=== PATIENT | female | born 1985 | race Caucasian/White ===

== ENCOUNTER 2016-09-06 08:20 | Emergency (ER) | payer MEDICAID, OTHER ==
[~2016-09-06] VITALS: Ht 149.9 cm; Wt 60.5 kg
[~2016-09-06 08:20] MED LIST: OXYC-360 PO; PREN0.01 PO
[2016-09-06 08:38] VITALS: BP 119/91; PULSE 74; RESP 16; TEMP 98.5; O2SAT 98
[2016-09-06] MEDS ORDERED: TYLETAB34 PO (09:39)
[2016-09-06] MEDS ORDERED: IBUP-232 PO (09:39)
[2016-09-06] MEDS ORDERED: PENI250T59 PO (09:39)
--- NOTE | 2016-09-06 09:40 | PD ---
HPI Chief Complaint: Oral / Dental Pain or Problem Time Seen by Provider: 09:32 Travel History International Travel<30 days: No Contact w/Intl Traveler<30days: No Traveled to known affect area: No History of Present Illness HPI 30-year-old female complains of dental pain. Patient states that the symptoms started 4 days ago. Patient states the pain localized to right lower gum area. Patient denies any pain radiation. Patient states that she had dental pain problem in the past. Patient has not seen a dentist for many years. PFSH Past Medical History Medical History: Denies Significant Hx Cardiovascular Problems: Yes (HEART MURMUR) ?: Unknown LMP: 08/03/16 : 0 Social History Alcohol Use: Yes (2/DAY) Tobacco Use: Yes (1 PPD) Allergies-Medications (Allergen,Severity, Reaction): Coded Allergies: Latex (Verified Allergy, Mild, 09/06/16) Lortab (Verified Adverse Reaction, Mild, HIVES, RASH, 09/06/16) Reported Meds & Prescriptions Reported Meds & Active Scripts Active No Active Prescriptions or Reported Medications Review of Systems General / Constitutional: No: Fever Eyes: No: Visual changes HENT: No: Headaches Cardiovascular: No: Chest Pain or Discomfort Respiratory: No: Shortness of Breath Gastrointestinal: No: Abdominal Pain Genitourinary: No: Dysuria Musculoskeletal: No: Pain Skin: No Rash Neurologic: No: Weakness Psychiatric: No: Depression Endocrine: No: Polydipsia Hematologic/Lymphatic: No: Easy Bruising Physical Exam Narrative GENERAL: Well-nourished, well-developed patient. SKIN: Warm and dry. HEAD: Normocephalic. EYES: No scleral icterus. No injection or drainage. NECK: Supple, trachea midline. No JVD or lymphadenopathy. CARDIOVASCULAR: Regular rate and rhythm without murmurs, gallops, or rubs. RESPIRATORY: Breath sounds equal bilaterally. No accessory muscle use. GASTROINTESTINAL: Abdomen soft, non-tender, nondistended. MUSCULOSKELETAL: No cyanosis, or edema. BACK: Nontender without obvious deformity. No CVA tenderness. Patient has mild soft tissue swelling tenderness diffuse over the right lower gum area. Severe dental caries noted. Data Data Last Documented VS Vital Signs Date Time Temp Pulse Resp B/P Pulse Ox O2 Delivery O2 Flow Rate FiO2 09/06/16 08:38 98.5 74 16 119/91 98 MDM Medical Decision Making Medical Screen Exam Complete: Yes Emergency Medical Condition: Yes Differential Diagnosis Differential diagnosis including dental pain, dental abscess. Narrative Course 30-year-old female with dental pain. Diagnosis Primary Impression: Pain, dental Patient Instructions: General Instructions Additional Instructions: Take medications as directed. Follow-up with dentist. Med/Other Pt SpecificInfo: Prescription(s) given Scripts Acetaminophen-Codeine (Tylenol-Codeine #3)300-30 mg Tab1-2 Tab PO Q6H PRN (PAIN ) #30 TAB Ref 0 Prov:Sedrick Ramos MD 09/06/16 Ibuprofen 600 Mg [id number] Mg PO Q8HR PRN (PAIN) #60 TAB Ref 0 Prov:Sedrick Ramos MD 09/06/16 Penicillin V Potassium (Penicillin Vk)250 Mg Tab2 Tab PO Q6H #80 TAB Ref 0 Prov:Sedrick Ramos MD 09/06/16 Disposition: 01 DISCHARGE HOME Condition: Stable Sedrick Ramos MD Sep 06, 2016 09:39
== END 2016-09-06 09:53 | disposition home or self-care (01) ==
LOC: PHED 08:20
DX: K08.89 Other specified disorders of teeth and supporting structures (principal); F17.200 Nicotine dependence, unspecified, uncomplicated; Z86.79 Personal history of other diseases of the circulatory system
CPT/HCPCS: 99282

== ENCOUNTER 2016-10-28 10:24 | Emergency (ER) | payer MEDICAID ==
[~2016-10-28] VITALS: Ht 149.9 cm; Wt 58.0 kg
[~2016-10-28 10:24] MED LIST changes: +IBUP-232 PO; -OXYC-360 PO; +PENI250T59 PO; -PREN0.01 PO; +TYLETAB34 PO
[2016-10-28 10:30] VITALS: BP 109/73; PULSE 96; RESP 16; TEMP 98.6; O2SAT 96
[2016-10-28 10:47] VITALS: BP 110/68; PULSE 96; RESP 16; O2SAT 100
--- NOTE | 2016-10-28 10:50 | PD ---
HPI Chief Complaint: Skin Problem Time Seen by Provider: 10:50 Travel History International Travel<30 days: No Contact w/Intl Traveler<30days: No Traveled to known affect area: No History of Present Illness HPI 30-year-old female came to the emergency room with a lesion on her right forearm after being bitten by a tick about a week ago. Patient says that they went camping 1 week ago and she got multiple tick bites or mosquito bites. All the others are healing up fine except for this one bite which was on her right forearm. She is not sure whether she scratched it or something else but it is getting redness around the bite surface which is getting bigger in size. Distended to touch. She has been applying calamine lotion on it but it's not making it better. No history of fever or chills. She does not have a primary care provider. Vital signs were relatively stable. [facility] Past Medical History Narrative Medical List of her past medical, surgical, social and family history was reviewed from the nursing note. Cardiovascular Problems: Yes (HTN) Tetanus Vaccination: > 5 Years Influenza Vaccination: No ?: Not : 0 Past Surgical History Surgical History: No Previous Surgery Social History Alcohol Use: Yes (2/DAY) Tobacco Use: Yes (1 PPD) Substance Use: No Allergies-Medications (Allergen,Severity, Reaction): Coded Allergies: Doxycycline (Verified Allergy, Severe, Nausea/Vomiting, 10/31/16) Latex (Verified Allergy, Mild, 10/31/16) Lortab (Verified Adverse Reaction, Mild, HIVES, RASH, 10/31/16) Comments List of her allergies reviewed from the nursing note. Reported Meds & Prescriptions Reported Meds & Active Scripts Active Ibuprofen 800 Mg Tab 800 Mg PO Q6HR PRN Valacyclovir (Valacyclovir HCl) 1 Gm Tab 1,000 Mg PO TID 7 Days Doxycycline Hyclate 100 Mg Cap 100 Mg PO BID 14 Days Narrative Medication List of her home medications reviewed from the nursing note. Review of Systems Except as stated in HPI: all other systems reviewed are Neg Physical Exam Narrative GENERAL: Awake, alert, no obvious distress SKIN: Focused skin assessment warm/dry. Multiple insect bites on the body surface. Right volar aspect of her forearm in the middle has a central bite wounds surrounded by erythema in a well-circumscribed pattern. It is tender to touch and slightly warm. It is raised but no fluctuation underneath appreciated. HEAD: Atraumatic. Normocephalic. EYES: Pupils equal and round. No scleral icterus. No injection or drainage. ENT: No nasal bleeding or discharge. Mucous membranes pink and moist. Extremely poor dentition. NECK: Trachea midline. No JVD. CARDIOVASCULAR: Regular rate and rhythm. No murmur appreciated. RESPIRATORY: No accessory muscle use. Clear to auscultation. Breath sounds equal bilaterally. GASTROINTESTINAL: Abdomen soft, non-tender, nondistended. Hepatic and splenic margins not palpable. MUSCULOSKELETAL: No obvious deformities. No clubbing. No cyanosis. No edema. NEUROLOGICAL: Awake and alert. No obvious cranial nerve deficits. Motor grossly within normal limits. Normal speech. PSYCHIATRIC: Appropriate mood and affect; insight and judgment normal. Data Data Last Documented VS Vital Signs Date Time Temp Pulse Resp B/P Pulse Ox O2 Delivery O2 Flow Rate FiO2 10/28/16 10:47 96 16 110/68 100 Room Air 10/28/16 10:30 98.6 [facility] Medical Decision Making Medical Screen Exam Complete: Yes Emergency Medical Condition: Yes Medical Record Reviewed: Yes Differential Diagnosis Cellulitis, erythema marginatum Narrative Course 11:01 AM patient will be discharged home on a prescription for doxycycline. Procedures EKG Prior to Arrival: No Diagnosis Primary Impression: Tick bite Qualified Code: W57.XXXA - Tick bite, initial encounter Additional Impression: Cellulitis Qualified Code: L03.113 - Cellulitis of right upper extremity Referrals: Primary Care Physician 3 days Additional Instructions: Please return to the ER if the condition worsens or any other new concerns. Otherwise follow-up with your primary care in couple days. Take the antibiotic as per the prescription direction. Med/Other Pt SpecificInfo: Prescription(s) given Scripts Doxycycline Hyclate 100 Mg [id number] Mg PO BID 14 Days Ref 0 Prov:Jadyn Barker MD 10/28/16 Disposition: 01 DISCHARGE HOME Condition: Stable Jadyn Barker MD Oct 28, 2016 10:50
[2016-10-28] MEDS ORDERED: DOXY100C PO (11:02)
== END 2016-10-28 11:26 | disposition home or self-care (01) ==
LOC: PHED 10:24
DX: L03.113 Cellulitis of right upper limb (principal); S50.861A Insect bite (nonvenomous) of right forearm, initial encounter; I10 Essential (primary) hypertension; F17.200 Nicotine dependence, unspecified, uncomplicated; W57.XXXA Bitten or stung by nonvenomous insect and other nonvenomous arthropods, initial encounter
CPT/HCPCS: 99282

== ENCOUNTER 2016-10-31 12:11 | Emergency (ER) | payer MEDICAID ==
[~2016-10-31] VITALS: Ht 149.9 cm; Wt 61.5 kg
[~2016-10-31 12:11] MED LIST changes: +DOXY100C PO; -IBUP-232 PO; -PENI250T59 PO; -TYLETAB34 PO
[2016-10-31 12:13] VITALS: BP 124/79; PULSE 90; RESP 16; TEMP 98.5; O2SAT 98
[2016-10-31] MEDS ORDERED: IBUP800T23 PO (12:46)
[2016-10-31] MEDS ORDERED: VALA1TAB PO (12:46)
--- NOTE | 2016-10-31 12:47 | PD ---
HPI Chief Complaint: Skin Problem Time Seen by Provider: 12:41 Travel History International Travel<30 days: No Contact w/Intl Traveler<30days: No Traveled to known affect area: No History of Present Illness HPI 30-year-old female presents to the emergency department with worsening of rash on her right forearm that has now spread to her right breast. The rash started approximately 2-3 days ago. She thought it was a tick bite. She was seen at [facility] and was given doxycycline and experienced vomiting. She went back to [facility] yesterday and they stopped the doxycycline and prescribed clindamycin which she hasn't started yet. She says the rash is very painful. She denies fever, chills, nausea, vomiting. She has not taken any other medications or tried any other treatments to alleviate her symptoms. Allergies to doxycycline, latex, Lortab. No other modifying factors or associated signs and symptoms. PFSH Past Medical History Cardiovascular Problems: Yes (HTN) ?: Not LMP: 10/11/16 : 0 Social History Alcohol Use: Yes (2/DAY) Tobacco Use: Yes (1 PPD) Substance Use: No Allergies-Medications (Allergen,Severity, Reaction): Coded Allergies: Doxycycline (Verified Allergy, Severe, Nausea/Vomiting, 10/31/16) Latex (Verified Allergy, Mild, 10/31/16) Lortab (Verified Adverse Reaction, Mild, HIVES, RASH, 10/31/16) Reported Meds & Prescriptions Reported Meds & Active Scripts Active Ibuprofen 800 Mg Tab 800 Mg PO Q6HR PRN Valacyclovir (Valacyclovir HCl) 1 Gm Tab 1,000 Mg PO TID 7 Days Doxycycline Hyclate 100 Mg Cap 100 Mg PO BID 14 Days Review of Systems Except as stated in HPI: all other systems reviewed are Neg Physical Exam Narrative GENERAL: Well-nourished, well-developed female patient, in no acute distress; afebrile, nontoxic-appearing SKIN: Warm and dry. Right forearm and right breast with erythremic grouped vesicles present in a dermatomal distribution. No drainage or edema. HEAD: Atraumatic. Normocephalic. EYES: Pupils equal and round. No scleral icterus. No injection or drainage. ENT: Mucosa pink and moist. Airway patent. NECK: Trachea midline. CARDIOVASCULAR: Regular rate and rhythm. No murmur appreciated. RESPIRATORY: No accessory muscle use. Lungs sounds clear and equal bilaterally. GASTROINTESTINAL: Rounded. MUSCULOSKELETAL: No obvious deformities. No clubbing. No cyanosis. No edema. NEUROLOGICAL: Awake and alert. Oriented 3. No obvious cranial nerve deficits. Motor grossly within normal limits. Normal speech. PSYCHIATRIC: Appropriate mood and affect; insight and judgment normal. Data Data Last Documented VS Vital Signs Date Time Temp Pulse Resp B/P Pulse Ox O2 Delivery O2 Flow Rate FiO2 10/31/16 12:13 98.5 90 16 124/79 98 MDM Medical Decision Making Medical Screen Exam Complete: Yes Emergency Medical Condition: Yes Medical Record Reviewed: Yes Differential Diagnosis Shingles, hives, contact dermatitis Narrative Course 30-year-old female with rash to her right forearm and right breast that appear to be consistent with a shingles rash. She is afebrile and nontoxic-appearing. The rash is painful. She was previously seen and was given doxycycline and then seen again yesterday and was given a prescription for clindamycin. I prescribed valacyclovir and ibuprofen for home. Instructed the patient she could take the clindamycin as directed, but I felt the rash is consistent with shingles. Instructed patient to follow up with dermatology. Patient verbalizes understanding and agreement with treatment plan. Patient is medically cleared and stable for discharge. Discussed reasons to return to the emergency department. Instructed patient to follow up with primary care provider. Patient agrees with treatment plan. The patients vital signs are stable and the patient is stable for outpatient follow-up and treatment. Patient discharged home, stable and in no acute distress. Diagnosis Primary Impression: Shingles Qualified Code: B02.9 - Herpes zoster without complication Referrals: [employer] Primary Care Physician Patient Instructions: General Instructions, Shingles (ED) Departure Forms: Tests/Procedures, Work Release Enter return to work date: Nov 03, 2016 Additional Instructions: Take medications as prescribed Cool wet compresses to the rash to help relieve itching and pain as needed Cool Bath to help relieve itching and pain as needed Follow-up with a primary care provider Return to the emergency department immediately with worsening of symptoms Med/Other Pt SpecificInfo: Prescription(s) given, No Change to Meds Scripts Ibuprofen 800 Mg [id number] Mg PO Q6HR PRN (PAIN) #30 TAB Ref 0 Prov:Brittany Cuellar CORE INSPECTOR 10/31/16 Valacyclovir 1 Gm Tab1,000 Mg PO TID 7 Days Ref 0 Prov:Brittany Cuellar 10/31/16 Disposition: 01 DISCHARGE HOME Condition: Stable Brittany Cuellar Oct 31, 2016 12:47
== END 2016-10-31 12:59 | disposition home or self-care (01) ==
LOC: NEPK 12:11
DX: B02.9 Zoster without complications (principal); F17.200 Nicotine dependence, unspecified, uncomplicated
CPT/HCPCS: 99282

== ENCOUNTER 2017-01-04 07:24 | Emergency (ER) | payer MEDICAID ==
[~2017-01-04] VITALS: Ht 149.9 cm; Wt 60.6 kg
[~2017-01-04 07:24] MED LIST changes: +IBUP800T23 PO; +VALA1TAB PO
[2017-01-04 07:30] VITALS: BP 118/79; PULSE 83; RESP 16; TEMP 98.1; O2SAT 98
[2017-01-04 07:54] LABS: BLOOD, URINE NEG (NEG); GLUCOSE,URINE NEG (NEG); KETONE, URINE TRACE mg/dL (NEG); NITRITE,URINE NEG (NEG); PH, URINE 6.5 (5.0-8.5)
[2017-01-04 07:56] LABS: METHOD OF COLLECTION CLEAN CATCH; URINE COLOR YELLOW (YELLW/STRAW)
[2017-01-04 07:57] LABS: BACTERIA, URINE FEW /hpf; COMMENT (UR) CULTURE INDICATED; CULTURE IF INDICATED CULTURE INDICATED; SQUAMOUS EPITHELIAL CELL URINE > 8 /hpf (0-5)
--- NOTE | 2017-01-04 08:36 | PD ---
HPI Chief Complaint: GI Complaint Time Seen by Provider: 08:21 Travel History International Travel<30 days: No Contact w/Intl Traveler<30days: No Traveled to known affect area: No History of Present Illness HPI 31-year-old female complains of nausea vomiting abdominal cramping and vaginal spotting. Patient states that the symptoms started 4 days ago. Patient states that she had intermittent nausea vomiting but past 4 days. Patient started having mild low abdominal cramping intermittently for the past 4 days also. Patient states that she has intermittent spotting vaginally for the past 4 days also. Patient denies any headache. Patient denies any chest pain or shortness of breath. Patient denies fever chills. Patient denies any back pain. Patient denies any dysuria or frequency. Patient states that her last menstruation period was November 20. Patient states that her blood type is A+. PFSH Past Medical History Medical History: Denies Significant Hx Hx Anticoagulant Therapy: No Cardiovascular Problems: Yes (HTN) Diabetes: No Diminished Hearing: No Tetanus Vaccination: Unknown ?: : 0 Past Surgical History Tympanostomy Tube: Yes Social History Alcohol Use: Yes (2/DAY) Tobacco Use: Yes (4-5 CIGS PER DAY) Substance Use: No Allergies-Medications (Allergen,Severity, Reaction): Coded Allergies: Doxycycline (Verified Allergy, Severe, Nausea/Vomiting, 10/31/16) Latex (Verified Allergy, Mild, 10/31/16) Lortab (Verified Adverse Reaction, Mild, HIVES, RASH, 10/31/16) Reported Meds & Prescriptions Reported Meds & Active Scripts Active Phenergan (Promethazine HCl) 25 Mg Tablet 25 Mg PO Q6H PRN Keflex (Cephalexin) 500 Mg Capsule 500 Mg PO QID Review of Systems General / Constitutional: No: Fever Eyes: No: Visual changes HENT: No: Headaches Cardiovascular: No: Chest Pain or Discomfort Respiratory: No: Shortness of Breath Gastrointestinal: Positive: Nausea, Vomiting, Abdominal Pain Genitourinary: No: Dysuria Musculoskeletal: No: Pain Skin: No Rash Neurologic: No: Weakness Psychiatric: No: Depression Endocrine: No: Polydipsia Hematologic/Lymphatic: No: Easy Bruising Physical Exam Narrative GENERAL: Well-nourished, well-developed patient. SKIN: Focused skin assessment warm/dry. HEAD: Normocephalic. EYES: No scleral icterus. No injection or drainage. NECK: Supple, trachea midline. No JVD or lymphadenopathy. CARDIOVASCULAR: Regular rate and rhythm without murmurs, gallops, or rubs. RESPIRATORY: Breath sounds equal bilaterally. No accessory muscle use. GASTROINTESTINAL: Abdomen soft, non-tender, nondistended. MUSCULOSKELETAL: No cyanosis, or edema. BACK: Nontender without obvious deformity. No CVA tenderness. [employer] MGR exam: Patient has small amount a whitish discharge in vaginal vault. No blood noted. Cervix long thick and closed. Uterus is nonenlarged with no tenderness on palpation. No adnexal masses or tenderness. Data Data Last Documented VS Vital Signs Date Time Temp Pulse Resp B/P Pulse Ox O2 Delivery O2 Flow Rate FiO2 01/04/17 07:30 98.1 83 16 118/79 98 Orders Urinalysis - C+S If Indicated (01/04/17 07:36) Ed Urine Pregnancytest Poc (01/04/17 07:36) Urine Culture (01/04/17 07:40) Beta Hcg (Quant/Titer) (01/04/17 08:25) Complete Blood Count With Diff (01/04/17 08:25) Basic Metabolic Panel (Bmp) (01/04/17 08:25) Iv Access Insert/Monitor (01/04/17 08:25) Us Pelvis (Ques Pr/Ect)W Trans (01/04/17 ) Sodium Chlor 0.9% 1000 Ml Inj (Ns 1000 M (01/04/17 08:45) Ondansetron Inj (Zofran Inj) (01/04/17 08:45) Labs Laboratory Tests Test 01/04/17 01/04/17 07:40 08:30 Urine Collection Type CLEAN CATCH Urine Color YELLOW Urine Turbidity SLIGHT Urine pH 6.5 Urine Specific Siren 1.027 Urine Protein TRACE mg/dL Urine Glucose (UA) NEG mg/dL Urine Ketones TRACE mg/dL Urine Occult Blood NEG Urine Nitrite NEG Urine Bilirubin NEG Urine Leukocyte Esterase NEG Urine WBC 9-14 /hpf Urine Squamous Epithelial > 8 /hpf Cells Urine Bacteria FEW /hpf Microscopic Urinalysis Comment CULTURE INDICATED Urine Collection Time 07:40 White Blood Count 11.4 TH/MM3 Red Blood Count 4.55 MIL/MM3 Hemoglobin 14.5 GM/DL Hematocrit 42.5 % Mean Corpuscular Volume 93.5 FL Mean Corpuscular Hemoglobin 31.9 PG Mean Corpuscular Hemoglobin 34.1 % Concent Red Cell Distribution Width 12.5 % Platelet Count 361 TH/MM3 Mean Platelet Volume 7.4 FL Neutrophils (%) (Auto) 75.2 % Lymphocytes (%) (Auto) 14.7 % Monocytes (%) (Auto) 9.1 % Eosinophils (%) (Auto) 0.5 % Basophils (%) (Auto) 0.5 % Neutrophils # (Auto) 8.5 TH/MM3 Lymphocytes # (Auto) 1.7 TH/MM3 Monocytes # (Auto) 1.0 TH/MM3 Eosinophils # (Auto) 0.1 TH/MM3 Basophils # (Auto) 0.1 TH/MM3 CBC Comment DIFF FINAL Differential Comment Sodium Level 138 MEQ/L Potassium Level 3.6 MEQ/L Chloride Level 105 MEQ/L Carbon Dioxide Level 19.6 MEQ/L Anion Gap 13 MEQ/L Blood Urea Nitrogen 9 MG/DL Creatinine 0.64 MG/DL Estimat Glomerular Filtration 110 ML/MIN Rate Random Glucose 89 MG/DL Calcium Level 9.1 MG/DL Human Chorionic Gonadotropin, [address]197 MIU/ML Quant MDM Medical Decision Making Medical Screen Exam Complete: Yes Emergency Medical Condition: Yes Interpretation(s) 9:41 AM. CBC within normal limit. WBC 11.4. 75 neutrophil. BMP within normal limit. Bicarbonate 19.6. Beta hCG 33094. UA positive for WBC and bacteria. Differential Diagnosis Differential diagnosis including gastroenteritis, hyperemesis gravidarum, electrolyte abnormality, dehydration, UTI, threatened AB, incomplete AB, completed AB, ectopic . Narrative Course 31-year-old female with lower abdominal cramping and vaginal spotting. Urine test positive. Normal saline solution 1 L IV bolus. Zofran 4 mg IV. Diagnosis Primary Impression: Threatened Additional Impression: Gastroenteritis Patient Instructions: General Instructions Additional Instructions: Phenergan as needed for nausea vomiting. Encourage by mouth fluids and bed rest. Follow-up with local OB physician. Return if severe pelvic pain, excessive vaginal bleeding, persistent nausea vomiting. Med/Other Pt SpecificInfo: Prescription(s) given Scripts Promethazine (Phenergan)25 Mg [id number] Mg PO Q6H PRN (NAUSEA OR VOMITING) #12 TAB Ref 0 Prov:Sedrick Ramos MD 01/04/17 Cephalexin (Keflex)500 Mg [id number] Mg PO QID #28 CAP Ref 0 Prov:Sedrick Ramos MD 01/04/17 Disposition: 01 DISCHARGE HOME Condition: Stable Sedrick Ramos MD Jan 04, 2017 08:36
[2017-01-04 08:40] LABS: AUTOMATED NEUTROPHIL # 8.5 TH/MM3 (1.8-7.7); BASOPHIL # 0.1 TH/MM3 (0-0.2); BASOPHIL % 0.5 % (0.0-2.0); EOSINOPHIL # 0.1 TH/MM3 (0-0.4); EOSINOPHIL % 0.5 % (0.0-4.0); HEMATOCRIT 42.5 % (35.0-46.0); LYMPH % 14.7 % (9.0-44.0); LYMPHOCYTE # 1.7 TH/MM3 (1.0-4.8); MEAN CELL VOLUME 93.5 FL (80.0-100.0); MEAN CORPUSCULAR HEMOGLOBIN 31.9 PG (27.0-34.0); MEAN CORPUSCULAR HGB CONC 34.1 % (32.0-36.0); MONO % 9.1 % (0.0-8.0); NEUT % 75.2 % (16.0-70.0); PLATELET COUNT 361 TH/MM3 (150-450); RED BLOOD COUNT 4.55 MIL/MM3 (4.00-5.30); RED CELL DISTRIBUTION WIDTH 12.5 % (11.6-17.2); WHITE BLOOD COUNT 11.4 TH/MM3 (4.0-11.0)
[2017-01-04 08:43] LABS: HEMO FLAGS DIFF FINAL
[2017-01-04] MEDS ORDERED: ONDANSETRON HCL 4 MG/2 ML VIAL IV PUSH ONE (08:45)
[2017-01-04] MEDS ORDERED: SODIUM CHLOR 0.9% 1000 ML INJ 1,000 ML IV ONE (08:45)
[2017-01-04 08:51] LABS: POTASSIUM 3.6 MEQ/L (3.5-5.1)
[2017-01-04 08:58] LABS: BICARBONATE 19.6 MEQ/L (21.0-32.0)
[2017-01-04] MEDS ORDERED: PROM25TA10 PO (09:48)
[2017-01-04] MEDS ORDERED: CEPH-460 PO (09:48)
[2017-01-04 10:17] VITALS: BP 110/70; PULSE 80; RESP 18; O2SAT 98
--- NOTE | 2017-01-04 10:29 | RADHPO ---
EXAM DATE/TIME: 01/04/2017 09:09 [place] COMPARISON: No previous studies available for comparison. INDICATIONS : Bleeding. LAB(S): Beta-hC,534 MEDICAL HISTORY : Hypertension. SURGICAL HISTORY : Adnoidectomy. Tympanostomy tube. ENCOUNTER: Initial ACUITY: 4-6 days PAIN SCORE: 2/10 LOCATION: Bilateral pelvis MEASUREMENTS: TRANSVAGINAL: UTERUS: 7.4 x 5.9 x 3.6 cm ENDOMETRIAL STRIPE: 6 mm RIGHT OVARY: 3.1 x 2.3 x 2.5 cm LEFT OVARY: 3.6 x 2.1 x 2.1 cm FREE FLUID: No CROWN RUMP LENGTH: 0.22 cm = 5 WKS 5 DAYS FHR: 188 BPM FINDINGS: UTERUS: Intrauterine gestational sac measuring 1.5 x 1.0 x 1.4 cm in size is identified. A pole with cr own-rump length of 0.22 cm is noted. heart rate is documented. RIGHT OVARY: Ovary contains no mass. 9 mm cyst is seen along the lower margin of the ovary. LEFT OVARY: Ovary contains no mass or significant cystic lesion. MISCELLANEOUS: No free fluid. CONCLUSION: Intrauterine with crown-rump length compatible with gestational age of 5 weeks 5 days Document heart rate. 9 mm right ovarian cyst. No significant abnormality. Dano Chiu MD on January 04, 2017 at 10:21 Board Certified Radiologist. This report was verified electronically.
== END 2017-01-04 10:19 | disposition home or self-care (01) ==
LOC: PHED 07:24
DX: O20.0 Threatened abortion (principal); K52.9 Noninfective gastroenteritis and colitis, unspecified; O23.40 Unspecified infection of urinary tract in pregnancy, unspecified trimester; B96.1 Klebsiella pneumoniae [K. pneumoniae] as the cause of diseases classified elsewhere; Z3A.00 Weeks of gestation of pregnancy not specified
CPT/HCPCS: 76700; 76817; 80048; 81001; 84702; 84703; 85025; 87077; 87086; 87186; 96361; 96374; 99285; J2405; J7030

== ENCOUNTER 2017-01-18 07:47 | Emergency (ER) | payer MEDICAID ==
[~2017-01-18] VITALS: Ht 149.9 cm; Wt 60.3 kg
[~2017-01-18 07:47] MED LIST changes: +CEPH-460 PO; -DOXY100C PO; -IBUP800T23 PO; +PROM25TA10 PO; -VALA1TAB PO
[2017-01-18 07:53] VITALS: BP 130/88; PULSE 83; RESP 16; TEMP 98.3; O2SAT 99
[2017-01-18] MEDS ORDERED: ONDANSETRON HCL 4 MG/2 ML VIAL IM ONE (08:15)
[2017-01-18] MEDS ORDERED: PROCHLORPERAZINE INJ 10 MG/2 ML VIAL IM ONE (08:15)
--- NOTE | 2017-01-18 08:16 | PD ---
HPI Chief Complaint: GI Complaint Time Seen by Provider: 07:56 Travel History International Travel<30 days: No Contact w/Intl Traveler<30days: No Traveled to known affect area: No History of Present Illness HPI The patient was seen and examined in the presence of the nurse. This is an extremely anxious lady who is 7 weeks 5 days with IUP. She complains of nausea and vomiting. She is tearful and crying and panicky. She is not having any pelvic pain or vaginal bleeding or discharge. No fever. Symptoms severity is moderate. No alleviating factors. Duration 3 days. Patient has chronic vomiting problems and has reportedly had extensive GI workup including endoscopy without diagnosis. PFSH Past Medical History Hx Anticoagulant Therapy: No Cardiovascular Problems: Yes (HTN) Diabetes: No Diminished Hearing: No : 0 Past Surgical History Tympanostomy Tube: Yes Social History Alcohol Use: Yes (2/DAY) Tobacco Use: Yes (4-5 CIGS PER DAY) Substance Use: No Allergies-Medications (Allergen,Severity, Reaction): Coded Allergies: Doxycycline (Verified Allergy, Severe, Nausea/Vomiting, 01/18/17) Latex (Verified Allergy, Mild, 01/18/17) Lortab (Verified Adverse Reaction, Mild, HIVES, RASH, 01/18/17) Reported Meds & Prescriptions Reported Meds & Active Scripts Active Zofran Odt (Ondansetron Odt) 4 Mg Tab 4 Mg SL Q6HR PRN Phenergan (Promethazine HCl) 25 Mg Tablet 25 Mg PO Q6H PRN Keflex (Cephalexin) 500 Mg Capsule 500 Mg PO QID Review of Systems General / Constitutional: No: Fever Eyes: No: Visual changes HENT: No: Headaches Cardiovascular: No: Chest Pain or Discomfort Respiratory: No: Shortness of Breath Gastrointestinal: Positive: Nausea, Vomiting, No: Abdominal Pain Genitourinary: No: Dysuria Musculoskeletal: No: Pain Skin: No Rash Neurologic: No: Weakness Psychiatric: Positive: Anxiety, No: Depression Endocrine: No: Polydipsia Hematologic/Lymphatic: No: Easy Bruising Physical Exam Narrative GENERAL: Well-nourished, well-developed patient having extreme anxiety and nausea and tearful . SKIN: Focused skin assessment reveals no rash and nodules. Skin is Warm and dry. HEAD: Atraumatic. Normocephalic. EYES: Pupils equal and round. No scleral icterus. No injection or drainage. ENT: No nasal bleeding or discharge. Mucous membranes pink and moist. NECK: Trachea midline. No JVD. CARDIOVASCULAR: Regular rate and rhythm. No murmur appreciated. RESPIRATORY: No accessory muscle use. Clear to auscultation. Breath sounds equal bilaterally. GASTROINTESTINAL: Abdomen soft, non-tender, nondistended. Hepatic and splenic margins not palpable. MUSCULOSKELETAL: No obvious deformities. No clubbing. No cyanosis. No edema. NEUROLOGICAL: Awake and alert. No obvious cranial nerve deficits. Motor grossly within normal limits. Normal speech. PSYCHIATRIC: Anxious mood and affect; insight and judgment normal. Data Data Last Documented VS Vital Signs Date Time Temp Pulse Resp B/P Pulse Ox O2 Delivery O2 Flow Rate FiO2 01/18/17 07:53 98.3 83 16 130/88 99 Orders Prochlorperazine Inj (Compazine Inj) (01/18/17 08:15) Ondansetron Inj (Zofran Inj) (01/18/17 08:15) Hydroxyzine Hcl Inj (Vistaril Inj) (01/18/17 08:15) Hydroxyzine Hcl Inj (Vistaril Inj) (01/18/17 08:30) MDM Medical Decision Making Medical Screen Exam Complete: Yes Emergency Medical Condition: Yes Medical Record Reviewed: Yes Differential Diagnosis Panic attack, anxiety, hyperemesis, cyclical vomiting Narrative Course I have reviewed the patient's electronic medical record. Reviewed her visit from 2 weeks ago when she had pelvic ultrasound Patient has soft benign nontender abdomen Vitals are normal and her exam is normal and she is euvolemic I gave her injection of Zofran and Compazine and Vistaril after discussion of risk benefit analysis when taking medication during . She wants to get the medicine. She's tried Phenergan without relief but had good relief from Zofran in the past Upon recheck she feels improved manager room is discussing with the patient where she can get care with her [facility] Medicaid Diagnosis Primary Impression: Nausea/vomiting in Additional Impression: Anxiety Additional Instructions: The patient was advised [facility] Med/Other Pt SpecificInfo: Prescription(s) given Scripts Ondansetron Odt (Zofran Odt)4 Mg Tab4 Mg SL Q6HR PRN (Nausea/Vomiting) #20 TAB Ref 0 Prov:Otf Felipe MD 01/18/17 Disposition: 01 DISCHARGE HOME Condition: Stable Otf Felipe MD Jan 18, 2017 08:16
[2017-01-18] MEDS ORDERED: hydrOXYzine HCL 50 MG/ML VIAL IM ONE (08:30)
[2017-01-18] MEDS ORDERED: ZOFR4TAB3 SL (08:42)
[2017-01-18 09:00] VITALS: BP 113/62; PULSE 80; RESP 16; O2SAT 99
== END 2017-01-18 09:03 | disposition home or self-care (01) ==
LOC: PHED 07:47
DX: O21.9 Vomiting of pregnancy, unspecified (principal); O26.891 Other specified pregnancy related conditions, first trimester; O99.331 Smoking (tobacco) complicating pregnancy, first trimester; Z3A.01 Less than 8 weeks gestation of pregnancy
CPT/HCPCS: 96372; 99284; J0780; J2405; J3410

== ENCOUNTER 2017-02-03 19:47 | Emergency (ER) | payer MEDICAID ==
[~2017-02-03] VITALS: Ht 172.7 cm; Wt 77.0 kg
[~2017-02-03 19:47] MED LIST changes: +ZOFR4TAB3 SL
[2017-02-03 19:48] VITALS: BP 142/81; PULSE 88; RESP 20; TEMP 98.8; O2SAT 99
--- NOTE | 2017-02-03 22:01 | PD ---
Physical Exam Time Seen by Provider: 22:00 Narrative 31 y/o female 9-10 weeks presents with n/v for 2 days, unrelieved with zofran. Also c/o vaginal bleeding daily for 2 weeks. She reports she is A+. denies abdominal pain. Vital signs reviewed. Seen at triage desk. Awaiting bed placement. Data Data Last Documented VS Vital Signs Date Time Temp Pulse Resp B/P Pulse Ox O2 Delivery O2 Flow Rate FiO2 02/03/17 19:48 98.8 88 20 142/81 99 Room Air [facility] Medical Record Reviewed: Yes Supervised Visit with CAS: No Jayson Glasgow Feb 03, 2017 22:01
[2017-02-03 22:46] LABS: AUTOMATED NEUTROPHIL # 13.1 TH/MM3 (1.8-7.7); BASOPHIL % 0.1 % (0.0-2.0); HEMATOCRIT 35.7 % (35.0-46.0); HEMO FLAGS DIFF FINAL; LYMPH % 13.1 % (9.0-44.0); LYMPHOCYTE # 2.1 TH/MM3 (1.0-4.8); MEAN CELL VOLUME 89.4 FL (80.0-100.0); MEAN CORPUSCULAR HEMOGLOBIN 31.6 PG (27.0-34.0); MEAN CORPUSCULAR HGB CONC 35.4 % (32.0-36.0); MONO % 5.5 % (0.0-8.0); NEUT % 81.3 % (16.0-70.0); PLATELET COUNT 419 TH/MM3 (150-450); RED BLOOD COUNT 3.99 MIL/MM3 (4.00-5.30); RED CELL DISTRIBUTION WIDTH 12.7 % (11.6-17.2); WHITE BLOOD COUNT 16.2 TH/MM3 (4.0-11.0)
[2017-02-03 22:53] LABS: BACTERIA, URINE OCC /hpf; BLOOD, URINE NEG (NEG); COMMENT (UR) CULT NOT INDICATED; CULTURE IF INDICATED CULT NOT INDICATED; GLUCOSE,URINE NEG (NEG); KETONE, URINE 40 mg/dL (NEG); MUCUS URINE FEW /lpf (OCC); NITRITE,URINE NEG (NEG); PH, URINE 8.5 (5.0-8.5); SQUAMOUS EPITHELIAL CELL URINE 7 /hpf (0-5); URINE COLOR YELLOW (YELLW/STRAW)
[2017-02-03 23:01] LABS: ALT (GPT) 24 U/L (10-53); ANION GAP 14 MEQ/L (5-15); AST (GOT) 12 U/L (15-37); BICARBONATE 22.5 MEQ/L (21.0-32.0); BLOOD UREA NITROGEN 19 MG/DL (7-18); CHLORIDE 99 MEQ/L (98-107); GLOMERULAR FILTRATION RATE 93 ML/MIN (>89); POTASSIUM 3.4 MEQ/L (3.5-5.1); SODIUM (NA) 135 MEQ/L (136-145)
[2017-02-03 23:17] LABS: ALKALINE PHOSPHATASE 51 U/L (45-117); TOTAL BILIRUBIN ADULT 0.3 MG/DL (0.2-1.0)
[2017-02-03 23:22] LABS: BETA HCG QUANT GREATER THAN 200000 MIU/ML (0-5)
[2017-02-04 01:07] VITALS: BP 130/76; PULSE 76; RESP 20; O2SAT 100
[2017-02-04] MEDS ORDERED: SODIUM CHLOR 0.9% 1000 ML INJ 1,000 ML IV ONE ×2 (01:30)
[2017-02-04] MEDS ORDERED: THIAMINE INJ 100 MG in SODIUM CHLORIDE 0.9% INJ 100 ML IV ONE (01:30)
[2017-02-04] MEDS ORDERED: ONDANSETRON HCL 4 MG/2 ML VIAL IV ONE (01:30)
--- NOTE | 2017-02-04 01:49 | PD ---
HPI Chief Complaint: Related Problem Time Seen by Provider: 01:20 Travel History International Travel<30 days: No Contact w/Intl Traveler<30days: No Traveled to known affect area: No History of Present Illness HPI 31-year-old woman, serum para 3, 0, 3, 3 with 3 previous abortions, approximately 10 weeks , presents emergency room complaining of feeling sick with intractable nausea vomiting over the past 2 days. She is planning on following up with Dr. Christina of it. She's had some nausea and vomiting earlier in this . She has Zofran at home. She is over the past 2 days she's taken the Zofran but hasn't helped. She states she's beginning nausea vomiting when she eats anything. She is no history of abdominal surgeries. She has had some mild lower abdominal cramping as well as vaginal spotting is been ongoing for the past 2 weeks. She is planning on following up with Dr. Sanford hauser but she has not seen him yet. History Past Medical History Medical History: Denies Significant Hx Tetanus Vaccination: Never Vaccinated Influenza Vaccination: No LMP: 11/22/16 : 7 Para: 3 Social History Alcohol Use: Yes (STATES NOT NOW) Tobacco Use: Yes Allergies-Medications (Allergen,Severity, Reaction): Coded Allergies: Doxycycline (Verified Allergy, Severe, Nausea/Vomiting, 01/18/17) Latex (Verified Allergy, Mild, 01/18/17) Lortab (Verified Adverse Reaction, Mild, HIVES, RASH, 01/18/17) Reported Meds & Prescriptions Reported Meds & Active Scripts Active Zofran Odt (Ondansetron Odt) 4 Mg Tab 4 Mg SL Q6HR PRN Phenergan (Promethazine HCl) 25 Mg Tablet 25 Mg PO Q6H PRN Review of Systems Except as stated in HPI: all other systems reviewed are Neg Physical Exam Narrative GENERAL: 31 year-old woman, looks like she doesn't feel well, intermittent vomiting. Nontoxic. SKIN: Focused skin assessment warm/dry. CARDIOVASCULAR: Regular rate and rhythm. No murmur appreciated. RESPIRATORY: No accessory muscle use. Clear to auscultation. Breath sounds equal bilaterally. GASTROINTESTINAL: Abdomen soft, non-tender, nondistended. Hepatic and splenic margins not palpable. MUSCULOSKELETAL: No obvious deformities. No clubbing. No cyanosis. No edema. NEUROLOGICAL: Awake and alert. No obvious cranial nerve deficits. Motor grossly within normal limits. Normal speech. Data Data Last Documented VS Vital Signs Date Time Temp Pulse Resp B/P Pulse Ox O2 Delivery O2 Flow Rate FiO2 02/04/17 01:07 76 20 130/76 100 Room Air 02/03/17 19:48 98.8 Orders Beta Hcg (Quant/Titer) (02/03/17 22:01) Complete Blood Count With Diff (02/03/17 22:01) Comprehensive Metabolic Panel (02/03/17 22:01) Urinalysis - C+S If Indicated (02/03/17 22:01) Ed Poc Ultrasound (02/04/17 ) Ondansetron Inj (Zofran Inj) (02/04/17 01:30) Thiamine Inj (Thiamine Inj) (02/04/17 01:30) Sodium Chlor 0.9% 1000 Ml Inj (Ns 1000 M (02/04/17 01:30) Sodium Chlor 0.9% 1000 Ml Inj (Ns 1000 M (02/04/17 01:30) Labs Laboratory Tests Test 02/03/17 22:10 White Blood Count 16.2 TH/MM3 Red Blood Count 3.99 MIL/MM3 Hemoglobin 12.6 GM/DL Hematocrit 35.7 % Mean Corpuscular Volume 89.4 FL Mean Corpuscular Hemoglobin 31.6 PG Mean Corpuscular Hemoglobin 35.4 % Concent Red Cell Distribution Width 12.7 % Platelet Count 419 TH/MM3 Mean Platelet Volume 8.1 FL Neutrophils (%) (Auto) 81.3 % Lymphocytes (%) (Auto) 13.1 % Monocytes (%) (Auto) 5.5 % Eosinophils (%) (Auto) 0.0 % Basophils (%) (Auto) 0.1 % Neutrophils # (Auto) 13.1 TH/MM3 Lymphocytes # (Auto) 2.1 TH/MM3 Monocytes # (Auto) 0.9 TH/MM3 Eosinophils # (Auto) 0.0 TH/MM3 Basophils # (Auto) 0.0 TH/MM3 CBC Comment DIFF FINAL Differential Comment Urine Color YELLOW Urine Turbidity HAZY Urine pH 8.5 Urine Specific [place] 1.025 Urine Protein 30 mg/dL Urine Glucose (UA) NEG mg/dL Urine Ketones 40 mg/dL Urine Occult Blood NEG Urine Nitrite NEG Urine Bilirubin NEG Urine Urobilinogen LESS THAN 2.0 MG/DL Urine Leukocyte Esterase SMALL Urine RBC LESS THAN 1 /hpf Urine WBC 7 /hpf Urine Squamous Epithelial 7 /hpf Cells Urine Bacteria OCC /hpf Urine Mucus FEW /lpf Microscopic Urinalysis Comment CULT NOT INDICATED Sodium Level 135 MEQ/L Potassium Level 3.4 MEQ/L Chloride Level 99 MEQ/L Carbon Dioxide Level 22.5 MEQ/L Anion Gap 14 MEQ/L Blood Urea Nitrogen 19 MG/DL Creatinine 0.74 MG/DL Estimat Glomerular Filtration 93 ML/MIN Rate Random Glucose 102 MG/DL Calcium Level 10.8 MG/DL Total Bilirubin 0.3 MG/DL Aspartate Amino Transf 12 U/L (AST/SGOT) Alanine Aminotransferase 24 U/L (ALT/SGPT) Alkaline Phosphatase 51 U/L Total Protein 8.1 GM/DL Albumin 3.6 GM/DL Human Chorionic Gonadotropin, GREATER THAN Quant [id number] MIU/ML [facility] Medical Decision Making Medical Screen Exam Complete: Yes Emergency Medical Condition: Yes Interpretation(s) LABS: CBC remarkable for mild leukocytosis. CMP unremarkable HCG negative Wet prep is negative Differential Diagnosis Nausea vomiting of , threatened AB, twin or molar , dehydration, other Narrative Course Medical decision making INITIAL: 31 year-old woman presents to the emergency department complaining of nausea and vomiting of , worsening over the past 2 days. Unable to keep fluids or food down. Nontoxic appearance. We'll check labs, urine, IV fluids, reassess. Patient filling a little bit improved now. She likely tried at home. I think it's reasonable. We'll give her Zofran [id number], and Phenergan when necessary. Procedures Procedure Narrative Point of care ultrasound: Focus transabdominal ultrasounds perform a me at the bedside for the purpose of evaluating for well-being. Intrauterine was identified. Approximately 10 weeks 4 days. heart rate 176. Diagnosis Primary Impression: Nausea/vomiting in Additional Instructions: Take Zofran 3 times daily scheduled. Take Phenergan in addition to the Zofran as needed for nausea or vomiting. Follow-up with your community health advisor at the first available appointment. Return to the emergency department for any new or worsening symptoms. Med/Other Pt SpecificInfo: Prescription(s) given Scripts Ondansetron Odt (Zofran Odt)4 Mg Tab4 Mg SL TID PRN (Nausea/Vomiting) #30 TAB Ref 0 Prov:Walter Wong MD 02/04/17 Promethazine (Phenergan)25 Mg [id number] Mg PO Q6H PRN (NAUSEA OR VOMITING) #12 TAB Ref 0 Prov:Walter Wong MD 02/04/17 Disposition: 01 DISCHARGE HOME Condition: Stable Walter Wong MD Feb 04, 2017 01:49
[2017-02-04] MEDS ORDERED: PROM25TA10 PO (03:45)
[2017-02-04] MEDS ORDERED: ZOFR4TAB3 SL (03:45)
[2017-02-05] MEDS ORDERED: CEPH-460 PO (01:10)
== END 2017-02-04 03:56 | disposition home or self-care (01) ==
LOC: NEPE 19:47
DX: O21.9 Vomiting of pregnancy, unspecified (principal); Z79.899 Other long term (current) drug therapy; Z72.0 Tobacco use; Z3A.10 10 weeks gestation of pregnancy; Z34.91 Encounter for supervision of normal pregnancy, unspecified, first trimester
CPT/HCPCS: 80053; 81001; 84702; 85025; 96365; 96366; 96376; 99285; J2405; J3411; J7030

== ENCOUNTER 2017-02-04 18:23 | Emergency (ER) | payer MEDICAID ==
[~2017-02-04] VITALS: Ht 149.9 cm; Wt 60.0 kg
[2017-02-04 18:25] VITALS: BP 128/70; PULSE 107; RESP 18; TEMP 98.3; O2SAT 99
[2017-02-04] MEDS ORDERED: SODIUM CHLOR 0.9% 1000 ML INJ 1,000 ML IV ONE (21:04)
[2017-02-04] MEDS ORDERED: METOCLOPRAMIDE HCL 10 MG/2 ML VIAL IV PUSH ONE (21:15)
[2017-02-04] MEDS ORDERED: FAMOTIDINE 20 MG/2 ML VIAL IV PUSH ONE (21:15)
[2017-02-04] MEDS ORDERED: diphenhydrAMINE HCL 50 MG/ML VIAL IV PUSH ONE (21:15)
--- NOTE | 2017-02-04 21:31 | PD ---
HPI Chief Complaint: Related Problem Time Seen by Provider: 21:22 Travel History International Travel<30 days: No Contact w/Intl Traveler<30days: No Traveled to known affect area: No History of Present Illness HPI 31-year-old female that presents to the ED for evaluation of nausea and vomiting. Per patient she's had this for the past couple days. Per patient she 's been here 3 times for this. Per patient she's been taking the medications given to by us with no relief. Per patient she cannot keep anything down for the past 3 days. She states that she has epigastric discomfort that feels like a burning sensation because of throwing up. She denies any lower abdominal pain. Per patient she was seen here yesterday and she was given both Zofran and Phenergan and states that she has been able to keep that down and keeps coming back up. Per patient she's not been able to even drink water because of the nausea and vomit. She states that she has a history of GI issues that have never been diagnosed and this has been a chronic issue for her but it's been worsening since the started. Per patient she is about 10 weeks . She denies any bleeding. No discharge. PFSH Past Medical History Hx Anticoagulant Therapy: No Cardiovascular Problems: Yes (HTN) Diabetes: No Diminished Hearing: No Immunizations Current: Yes ?: LMP: 11/22/16 : 7 Para: 3 Miscarriage: 1 : 3 Past Surgical History Section: No Tympanostomy Tube: Yes Social History Alcohol Use: Yes (STATES NOT NOW) Tobacco Use: Yes Substance Use: Yes (MARIJUANA ) Allergies-Medications (Allergen,Severity, Reaction): Coded Allergies: Doxycycline (Verified Allergy, Severe, Nausea/Vomiting, 01/18/17) Latex (Verified Allergy, Mild, 01/18/17) Lortab (Verified Adverse Reaction, Mild, HIVES, RASH, 01/18/17) Reported Meds & Prescriptions Reported Meds & Active Scripts Active Zofran Odt (Ondansetron Odt) 4 Mg Tab 4 Mg SL TID PRN Phenergan (Promethazine HCl) 25 Mg Tablet 25 Mg PO Q6H PRN Review of Systems Except as stated in HPI: all other systems reviewed are Neg Physical Exam Narrative GENERAL: SKIN: Warm and dry. HEAD: Atraumatic. Normocephalic. EYES: Pupils equal and round. No scleral icterus. No injection or drainage. ENT: No nasal bleeding or discharge. Mucous membranes pink and moist. Tongue is midline. No uvula deviation. NECK: Trachea midline. No JVD. CARDIOVASCULAR: Regular rate and rhythm. No murmurs, S3, S4. RESPIRATORY: No accessory muscle use. Clear to auscultation. Breath sounds equal bilaterally. GASTROINTESTINAL: Abdomen soft, non-tender, nondistended. Hepatic and splenic margins not palpable. MUSCULOSKELETAL: Extremities without clubbing, cyanosis, or edema. No obvious deformities. Full range of motion of the upper and lower extremities bilaterally. 2+ pulses bilaterally. NEUROLOGICAL: Awake and alert. No obvious cranial nerve deficits. Motor grossly within normal limits. Five out of 5 muscle strength in the arms and legs. Normal speech. PSYCHIATRIC: Appropriate mood and affect; insight and judgment normal. Data Data Last Documented VS Vital Signs Date Time Temp Pulse Resp B/P Pulse Ox O2 Delivery O2 Flow Rate FiO2 02/04/17 18:25 98.3 107 18 128/70 99 Room Air Orders Complete Blood Count With Diff (02/04/17 21:04) Basic Metabolic Panel (Bmp) (02/04/17 21:04) Iv Access Insert/Monitor (02/04/17 21:04) Ecg Monitoring (02/04/17 21:04) Sodium Chlor 0.9% 1000 Ml Inj (Ns 1000 M (02/04/17 21:04) Metoclopramide Inj (Reglan Inj) (02/04/17 21:15) Diphenhydramine Inj (Benadryl Inj) (02/04/17 21:15) Beta Hcg (Quant/Titer) (02/04/17 21:13) Famotidine Inj (Pepcid Inj) (02/04/17 21:15) Urinalysis - C+S If Indicated (02/04/17 21:31) Labs Laboratory Tests Test 02/04/17 21:20 White Blood Count 13.3 TH/MM3 Red Blood Count 3.41 MIL/MM3 Hemoglobin 10.9 GM/DL Hematocrit 31.5 % Mean Corpuscular Volume 92.4 FL Mean Corpuscular Hemoglobin 31.9 PG Mean Corpuscular Hemoglobin 34.5 % Concent Red Cell Distribution Width 12.4 % Platelet Count 319 TH/MM3 Mean Platelet Volume 8.0 FL Neutrophils (%) (Auto) 75.3 % Lymphocytes (%) (Auto) 18.0 % Monocytes (%) (Auto) 6.2 % Eosinophils (%) (Auto) 0.3 % Basophils (%) (Auto) 0.2 % Neutrophils # (Auto) 10.0 TH/MM3 Lymphocytes # (Auto) 2.4 TH/MM3 Monocytes # (Auto) 0.8 TH/MM3 Eosinophils # (Auto) 0.0 TH/MM3 Basophils # (Auto) 0.0 TH/MM3 CBC Comment DIFF FINAL Differential Comment Sodium Level 137 MEQ/L Potassium Level 3.4 MEQ/L Chloride Level 105 MEQ/L Carbon Dioxide Level 21.8 MEQ/L Anion Gap 10 MEQ/L Blood Urea Nitrogen 14 MG/DL Creatinine 0.55 MG/DL Estimat Glomerular Filtration 131 ML/MIN Rate Random Glucose 85 MG/DL Calcium Level 9.4 MG/DL Human Chorionic Gonadotropin, [id number] MIU/ML Quant MDM Medical Decision Making Medical Screen Exam Complete: Yes Emergency Medical Condition: Yes Medical Record Reviewed: Yes Differential Diagnosis Nausea and vomiting versus gastroenteritis versus vomiting versus Narrative Course 31-year-old female that presents to the ED for evaluation of nausea and vomiting. Patient was properly examined and was found to have signs and symptoms consistent appears to be in nausea and vomiting. Patient reports that she's not been able to eat or drink anything for the past couple days. I did review her records and she was here a couple of weeks ago and was given medications with some improvement. Patient was seen here yesterday and had blood work as well as ultrasound that showed no sign of acute disease other than . Patient was given medications and per the note from the doctor at the time patient felt better and wanted to go home. Patient was given Phenergan and Zofran prescriptions and states that this does not help. At this time I recommend IV, we'll do blood work to make sure patient doesn't have any electrolyte abnormality. I will start patient on IV fluids, Reglan, Benadryl and Pepcid as patient complains of what appears to be heartburn. All of this medications are category B and should be safe in . Will reassess. Labs WNL. UA still pending. Case signed out to my attending pending dispo. Dl Abreu Feb 04, 2017 21:31
[2017-02-04 21:53] LABS: BASOPHIL % 0.2 % (0.0-2.0); EOSINOPHIL % 0.3 % (0.0-4.0); HEMATOCRIT 31.5 % (35.0-46.0); HEMO FLAGS DIFF FINAL; LYMPHOCYTE # 2.4 TH/MM3 (1.0-4.8); MEAN CELL VOLUME 92.4 FL (80.0-100.0); MEAN CORPUSCULAR HEMOGLOBIN 31.9 PG (27.0-34.0); MEAN CORPUSCULAR HGB CONC 34.5 % (32.0-36.0); MONO % 6.2 % (0.0-8.0); NEUT % 75.3 % (16.0-70.0); PLATELET COUNT 319 TH/MM3 (150-450); RED BLOOD COUNT 3.41 MIL/MM3 (4.00-5.30); RED CELL DISTRIBUTION WIDTH 12.4 % (11.6-17.2); WHITE BLOOD COUNT 13.3 TH/MM3 (4.0-11.0)
[2017-02-04 22:17] LABS: BICARBONATE 21.8 MEQ/L (21.0-32.0); POTASSIUM 3.4 MEQ/L (3.5-5.1)
[2017-02-04 22:31] LABS: BETA HCG QUANT 198536 MIU/ML (0-5)
[2017-02-05 00:54] LABS: BACTERIA, URINE FEW /hpf; BLOOD, URINE TRACE (NEG); COMMENT (UR) CULTURE INDICATED; CULTURE IF INDICATED CULTURE INDICATED; GLUCOSE,URINE NEG (NEG); KETONE, URINE NEG (NEG); MUCUS URINE FEW /lpf (OCC); NITRITE,URINE NEG (NEG); SQUAMOUS EPITHELIAL CELL URINE 3 /hpf (0-5); URINE COLOR YELLOW (YELLW/STRAW)
[2017-02-05] MEDS ORDERED: CEPH-460 PO (01:10)
--- NOTE | 2017-02-05 01:11 | PD ---
Physical Exam Narrative GENERAL: Well-nourished, well-developed patient. SKIN: Warm and dry. HEAD: Normocephalic and atraumatic. EYES: No injection or drainage. ENT: No nasal drainage noted. NECK: Supple, trachea midline. CARDIOVASCULAR: Regular rate and rhythm RESPIRATORY: no increased effort. No accessory muscle use. GASTROINTESTINAL: Abdomen soft, non-tender NEUROLOGICAL: Awake and alert. Motor and sensory grossly within normal limits. Normal speech. Data Data Last Documented VS Vital Signs Date Time Temp Pulse Resp B/P Pulse Ox O2 Delivery O2 Flow Rate FiO2 02/04/17 18:25 98.3 107 18 128/70 99 Room Air Orders Complete Blood Count With Diff (02/04/17 21:04) Basic Metabolic Panel (Bmp) (02/04/17 21:04) Iv Access Insert/Monitor (02/04/17 21:04) Ecg Monitoring (02/04/17 21:04) Sodium Chlor 0.9% 1000 Ml Inj (Ns 1000 M (02/04/17 21:04) Metoclopramide Inj (Reglan Inj) (02/04/17 21:15) Diphenhydramine Inj (Benadryl Inj) (02/04/17 21:15) Beta Hcg (Quant/Titer) (02/04/17 21:13) Famotidine Inj (Pepcid Inj) (02/04/17 21:15) Urinalysis - C+S If Indicated (02/04/17 21:31) Urine Culture (02/05/17 00:35) Ceftriaxone Inj (Rocephin Inj) (02/05/17 01:15) Labs Laboratory Tests Test 02/04/17 02/05/17 21:20 00:35 White Blood Count 13.3 TH/MM3 Red Blood Count 3.41 MIL/MM3 Hemoglobin 10.9 GM/DL Hematocrit 31.5 % Mean Corpuscular Volume 92.4 FL Mean Corpuscular Hemoglobin 31.9 PG Mean Corpuscular Hemoglobin 34.5 % Concent Red Cell Distribution Width 12.4 % Platelet Count 319 TH/MM3 Mean Platelet Volume 8.0 FL Neutrophils (%) (Auto) 75.3 % Lymphocytes (%) (Auto) 18.0 % Monocytes (%) (Auto) 6.2 % Eosinophils (%) (Auto) 0.3 % Basophils (%) (Auto) 0.2 % Neutrophils # (Auto) 10.0 TH/MM3 Lymphocytes # (Auto) 2.4 TH/MM3 Monocytes # (Auto) 0.8 TH/MM3 Eosinophils # (Auto) 0.0 TH/MM3 Basophils # (Auto) 0.0 TH/MM3 CBC Comment DIFF FINAL Differential Comment Sodium Level 137 MEQ/L Potassium Level 3.4 MEQ/L Chloride Level 105 MEQ/L Carbon Dioxide Level 21.8 MEQ/L Anion Gap 10 MEQ/L Blood Urea Nitrogen 14 MG/DL Creatinine 0.55 MG/DL Estimat Glomerular Filtration 131 ML/MIN Rate Random Glucose 85 MG/DL Calcium Level 9.4 MG/DL Human Chorionic Gonadotropin, [id number] MIU/ML Quant Urine Color YELLOW Urine Turbidity CLOUDY Urine pH 7.0 Urine Specific [place] 1.014 Urine Protein TRACE mg/dL Urine Glucose (UA) NEG mg/dL Urine Ketones NEG mg/dL Urine Occult Blood TRACE Urine Nitrite NEG Urine Bilirubin NEG Urine Urobilinogen LESS THAN 2.0 MG/DL Urine Leukocyte Esterase MOD Urine RBC 4 /hpf Urine WBC 12 /hpf Urine Squamous Epithelial 3 /hpf Cells Urine Amorphous Sediment RARE Urine Bacteria FEW /hpf Urine Mucus FEW /lpf Microscopic Urinalysis Comment CULTURE INDICATED MDM Supervised Visit with CAS: Yes Interpretation(s) CBC & BMP Diagram 02/04/17 21:20 Differential Diagnosis I, Dr. watson, have reviewed the advance practice practitioner's documentation and am in agreement, met with the patient face to face, made the diagnosis, and the medical decision making was done by me. *My assessment and Findings: 31-year-old female who presents with hyperemesis gravidarum with visits for similar, labs without emergent findings, no emesis here. Urine with questionable signs of infection given we'll treat. Given Rocephin here, Will send home with Keflex, tolerating oral challenge, Patient denies any new complaints and states that they are feeling better. Patient happy with care, all questions answered. Patient knows that follow up is incumbent on them and to return to the emergency room immediately if new or worsening symptoms develop. Patient given strict return precautions, vitals reviewed and are normal, agrees to further workup as an outpatient. Diagnosis Primary Impression: Nausea/vomiting in Additional Impression: UTI (urinary tract infection) Qualified Code: N39.0 - Urinary tract infection without hematuria, site unspecified Patient Instructions: General Instructions Additional Instruction: return as needed, follow with your ob tommorrow, keep hydrated, use home nausea medication as prescribed Med/Other Pt SpecificInfo: Prescription(s) given Scripts Cephalexin (Keflex)500 Mg Oev209 Mg PO Q12H 7 Days Ref 0 Prov:Claudia Watson MD 02/05/17 Disposition: 01 DISCHARGE HOME Condition: Stable Claudia Watson MD Feb 05, 2017 01:11
[2017-02-05] MEDS ORDERED: cefTRIAXone INJ 1,000 MG in SODIUM CHLORIDE 0.9% INJ 100 ML IV ONE (01:15)
== END 2017-02-05 04:10 | disposition home or self-care (01) ==
LOC: NEPC 18:23
DX: O21.9 Vomiting of pregnancy, unspecified (principal); O23.41 Unspecified infection of urinary tract in pregnancy, first trimester; B96.1 Klebsiella pneumoniae [K. pneumoniae] as the cause of diseases classified elsewhere; O21.0 Mild hyperemesis gravidarum; R10.13 Epigastric pain; Z72.0 Tobacco use; Z86.79 Personal history of other diseases of the circulatory system; Z3A.10 10 weeks gestation of pregnancy
CPT/HCPCS: 80048; 81001; 84702; 85025; 87077; 87086; 87186; 96361; 96365; 96375; 99284; J0696; J1200; J2765; J7030

== ENCOUNTER 2017-04-07 16:07 | Emergency (ER) | payer MEDICAID ==
[2017-04-07 16:12] VITALS: BP 140/70; PULSE 96; RESP 20; TEMP 98.9
[2017-04-07] MEDS ORDERED: ONDANSETRON HCL 4 MG/2 ML VIAL IVP ONE (17:00)
[2017-04-07] MEDS ORDERED: SODIUM CHLORIDE 0.9% FLUSH 10 ML FLUSH IV FLUSH PRN (17:00)
[2017-04-07] MEDS ORDERED: SODIUM CHLOR 0.9% 1000 ML INJ 1,000 ML IV ONE (17:00)
[2017-04-07] MEDS ORDERED: SODIUM CHLOR 0.9% 1000 ML INJ 1,000 ML IV SCH (17:00)
[2017-04-07] MEDS ORDERED: FAMOTIDINE 20 MG/2 ML VIAL IV PUSH ONE (17:00)
[2017-04-07] MEDS ORDERED: REGL10TA5 PO (17:12)
--- NOTE | 2017-04-07 17:26 | PD ---
HPI Chief Complaint: GI Complaint Time Seen by Provider: 16:59 Travel History International Travel<30 days: No Contact w/Intl Traveler<30days: No Traveled to known affect area: No History of Present Illness HPI Patient is a 31-year-old female who is 16 weeks , presents to emergency room with complaints of intractable nausea and vomiting. She reports that this is her fourth , reports that she has 3 living children (all full term born via vaginal delivery). Reports that throughout her whole , she has had intractable nausea and vomiting. She reports that she has been taking Phenergan as well as Zofran without any relief of symptoms. Reports that her nausea and vomiting was worse today, reports that she was unable to drink or eat anything today due to her nausea. Patient reports no vaginal discharge or bleeding. Reports no abdominal pain at this time. Patient denies fevers or chills. Patient reports that she has an appointment with Dr. Jim on April 24 for her first exam. PFSH Past Medical History Hx Anticoagulant Therapy: No Cardiovascular Problems: Yes (HTN) Diabetes: No Diminished Hearing: No Gastrointestinal Disorders: Yes (GASTROPERISIS) Immunizations Current: Yes Tetanus Vaccination: > 5 Years Influenza Vaccination: No ?: LMP: FIRST WEEK OF NOVEMBER : 7 Para: 3 Miscarriage: 1 : 3 Past Surgical History Section: No Tympanostomy Tube: Yes Social History Alcohol Use: Yes (STATES NOT NOW) Tobacco Use: Yes (07/28 ppd) Substance Use: Yes (MARIJUANA ) Allergies-Medications (Allergen,Severity, Reaction): Coded Allergies: doxycycline (Unverified Allergy, Severe, Nausea/Vomiting, 04/07/17) latex (Unverified Allergy, Mild, 04/07/17) loracarbef (Verified Allergy, Unknown, 04/07/17) Reported Meds & Prescriptions Reported Meds & Active Scripts Active Zofran Odt (Ondansetron Odt) 4 Mg Tab 4 Mg SL TID PRN Phenergan (Promethazine HCl) 25 Mg Tablet 25 Mg PO Q6H PRN Reported Reglan (Metoclopramide HCl) 10 Mg Tab 10 Mg PO QID Review of Systems General / Constitutional: No: Fever Eyes: No: Visual changes HENT: No: Headaches Cardiovascular: No: Chest Pain or Discomfort Respiratory: No: Shortness of Breath Gastrointestinal: Positive: Nausea, Vomiting, No: Abdominal Pain Genitourinary: No: Dysuria, Decreased Urinary Output, Pelvic Pain, Flank Pain, Vaginal Bleeding Musculoskeletal: No: Pain Skin: No Rash Neurologic: No: Weakness Psychiatric: No: Depression Endocrine: No: Polydipsia Hematologic/Lymphatic: No: Easy Bruising Physical Exam Narrative GENERAL: Mild distress SKIN: Focused skin assessment warm/dry. HEAD: Atraumatic. Normocephalic. EYES: Pupils equal and round. No scleral icterus. No injection or drainage. ENT: No nasal bleeding or discharge. Mucous membranes pink and moist. NECK: Trachea midline. No JVD. CARDIOVASCULAR: Regular rate and rhythm. No murmur appreciated. RESPIRATORY: No accessory muscle use. Clear to auscultation. Breath sounds equal bilaterally. GASTROINTESTINAL: Abdomen soft, non-tender, nondistended. Hepatic and splenic margins not palpable. MUSCULOSKELETAL: No obvious deformities. No clubbing. No cyanosis. No edema. NEUROLOGICAL: Awake and alert. No obvious cranial nerve deficits. Motor grossly within normal limits. Normal speech. PSYCHIATRIC: Appropriate mood and affect; insight and judgment normal. Data Data Last Documented VS Vital Signs Date Time Temp Pulse Resp B/P (MAP) Pulse Ox O2 Delivery O2 Flow Rate FiO2 04/07/17 18:43 68 16 106/55 (72) 97 Room Air 04/07/17 16:12 98.9 Orders Orders Basic Metabolic Panel (Bmp) (04/07/17 17:00) Urinalysis - C+S If Indicated (04/07/17 17:00) Iv Access Insert/Monitor (04/07/17 17:00) Ondansetron Inj (Zofran Inj) (04/07/17 17:00) Sodium Chlor 0.9% 1000 Ml Inj (Ns 1000 M (04/07/17 17:00) Sodium Chloride 0.9% Flush (Ns Flush) (04/07/17 17:00) Famotidine Inj (Pepcid Inj) (04/07/17 17:00) Sodium Chlor 0.9% 1000 Ml Inj (Ns 1000 M (04/07/17 17:00) Labs Laboratory Tests Test 04/07/17 17:03 04/07/17 18:52 Blood Urea Nitrogen 12 MG/DL Creatinine 0.87 MG/DL Random Glucose 92 MG/DL Calcium Level 9.9 MG/DL Sodium Level 139 MEQ/L Potassium Level 3.5 MEQ/L Chloride Level 105 MEQ/L Carbon Dioxide Level 19.4 MEQ/L Anion Gap 15 MEQ/L Estimat Glomerular Filtration Rate 77 ML/MIN MDM Medical Decision Making Medical Screen Exam Complete: Yes Emergency Medical Condition: Yes Interpretation(s) Vital Signs Date Time Temp Pulse Resp B/P (MAP) Pulse Ox O2 Delivery O2 Flow Rate FiO2 04/07/17 16:12 98.9 96 20 140/70 (93) Differential Diagnosis Differential includes hyperemesis gravidarum, electrolytic abnormality, gastritis, gastroenteritis, UTI Narrative Course Patient's 31-year-old female who is 16 weeks , presents to emergency room complaints of hyperemesis gravidarum. Patient reports that throughout her , she has had been having problems with nausea and vomiting. Reports no relief with Zofran as well as Phenergan. She does have an appointment with Dr. Mclean on April 24 for care. Patient with no abdominal pain or vaginal bleeding this time. heart tones 142 Plan to obtain BMP 2Liters of IV fluids as well as antiemetics ordered CBC & BMP Diagram 04/07/17 17:03 Calcium Level 9.9 patient re-evaluated, patient reports complete resolution of nausea and vomiting. Abdomen is soft, nontoxic, nondistended, no peritoneal signs. Patient request to be discharged to home as she is feeling much better. Patient will follow-up with the primary care doctor as well as her benefits coordinator and will return to the emergency room as needed. Patient signed out to care of Dr. Galicia at change of shift, patient pending UA Diagnosis Primary Impression: Hyperemesis gravidarum Patient Instructions: General Instructions Additional Instructions: Please return to the emergency room as needed Please follow-up with your LITIGATION MANAGER as scheduled Please drink plenty of fluids Return to ER if symptoms worsen or progress Disposition: 01 DISCHARGE HOME Condition: Stable Crissy Phillips DO Apr 07, 2017 17:26
[2017-04-07 17:34] LABS: POTASSIUM 3.5 MEQ/L (3.5-5.1)
[2017-04-07 17:37] LABS: BICARBONATE 19.4 MEQ/L (21.0-32.0)
[2017-04-07 18:43] VITALS: BP 106/55; PULSE 68; RESP 16; O2SAT 97
[2017-04-07 18:56] VITALS: BP 104/54; PULSE 79; RESP 15; TEMP 98.5; O2SAT 99
[2017-04-07 19:06] LABS: BLOOD, URINE NEG (NEG); GLUCOSE,URINE NEG (NEG); KETONE, URINE 80 OR GREATER mg/dL (NEG); NITRITE,URINE NEG (NEG)
[2017-04-07 19:14] LABS: URINE COLOR YELLOW (YELLW/STRAW)
[2017-04-07 19:16] LABS: COMMENT (UR) CULTURE INDICATED; CULTURE IF INDICATED CULTURE INDICATED; MUCUS URINE MOD /lpf (OCC); RBC, URINE 0-3 /hpf (0-3)
[2017-04-07] MEDS ORDERED: MACR100C2 PO (19:24)
--- NOTE | 2017-04-07 19:31 | PD ---
Physical Exam Date Seen by Provider: Apr 07, 2017 Time Seen by Provider: 19:18 Narrative Accepted in transfer of care from Dr Phillips Data Data Last Documented VS Vital Signs Date Time Temp Pulse Resp B/P (MAP) Pulse Ox O2 Delivery O2 Flow Rate FiO2 04/07/17 18:56 98.5 79 15 104/54 (71) 99 Room Air Orders Orders Basic Metabolic Panel (Bmp) (04/07/17 17:00) Urinalysis - C+S If Indicated (04/07/17 17:00) Iv Access Insert/Monitor (04/07/17 17:00) Ondansetron Inj (Zofran Inj) (04/07/17 17:00) Sodium Chlor 0.9% 1000 Ml Inj (Ns 1000 M (04/07/17 17:00) Sodium Chloride 0.9% Flush (Ns Flush) (04/07/17 17:00) Famotidine Inj (Pepcid Inj) (04/07/17 17:00) Sodium Chlor 0.9% 1000 Ml Inj (Ns 1000 M (04/07/17 17:00) Urine Culture (04/07/17 18:52) Ondansetron Inj (Zofran Inj) (04/07/17 19:45) Labs Laboratory Tests Test 04/07/17 17:03 04/07/17 18:52 Blood Urea Nitrogen 12 MG/DL Creatinine 0.87 MG/DL Random Glucose 92 MG/DL Calcium Level 9.9 MG/DL Sodium Level 139 MEQ/L Potassium Level 3.5 MEQ/L Chloride Level 105 MEQ/L Carbon Dioxide Level 19.4 MEQ/L Anion Gap 15 MEQ/L Estimat Glomerular Filtration Rate 77 ML/MIN Urine Color YELLOW Urine Turbidity HAZY Urine pH 8.0 Urine Specific [place] 1.020 Urine Protein TRACE mg/dL Urine Glucose (UA) NEG mg/dL Urine Ketones 80 OR GREATER mg/dL Urine Occult Blood NEG Urine Nitrite NEG Urine Bilirubin NEG Urine Leukocyte Esterase NEG Urine RBC 0-3 /hpf Urine WBC 6-8 /hpf Urine WBC Clumps OCC Urine Squamous Epithelial Cells 6-8 /hpf Urine Mucus MOD /lpf Microscopic Urinalysis Comment CULTURE INDICATED MDM Medical Record Reviewed: Yes Supervised Visit with CAS: No Interpretation(s) UA: ketones; WBC' clumped WBC's CX indicated Differential Diagnosis Accepted in transfer of care from Dr Phillips; please refer to her dictation Narrative Course Accepted in transfer of care from Dr Phillips; follow up of pending UA and disposition Abnormal urinalysis --CX indicated with wbc's clumped wbc's -- plan to RX Keflex however allergic to cephalosporin ATB therefore will RX Macrobid and have follow up with her OB; patient requests additional dose of zofran prior to discharge to home. Diagnosis Primary Impression: Hyperemesis gravidarum Additional Impression: Abnormal urinalysis Patient Instructions: General Instructions Additional Instruction: Please return to the emergency room as needed Please follow-up with your AIR PLANT ENGINEER as scheduled Please drink plenty of fluids Return to ER if symptoms worsen or progress Med/Other Pt SpecificInfo: Prescription(s) given Scripts Nitrofurantoin Monohydrate Macrocrystals (Macrobid) 100 Mg Capsule 100 MG PO BID for Infection for 7 Days, #14 CAP 0 Refills Prov: Charlotte Galicia MD 04/07/17 Disposition: DISCHARGE HOME Condition: Stable Charlotte Galicia MD Apr 07, 2017 19:31
[2017-04-07] MEDS ORDERED: ONDANSETRON HCL 4 MG/2 ML VIAL IV PUSH ONE (19:45)
== END 2017-04-07 19:54 | disposition home or self-care (01) ==
LOC: PHED 16:07
DX: O21.0 Mild hyperemesis gravidarum (principal); R82.71 Bacteriuria; Z3A.16 16 weeks gestation of pregnancy
CPT/HCPCS: 80048; 81001; 87086; 96361; 96374; 96375; 96376; 99284; J2405; J7030

== ENCOUNTER 2017-06-19 09:51 | Inpatient (IN) | payer MEDICAID ==
[~2017-06-19] VITALS: Ht 149.9 cm; Wt 63.0 kg
[~2017-06-19 09:51] MED LIST changes: -CEPH-460 PO; +MACR100C2 PO; +REGL10TA5 PO
[2017-06-19] MEDS ORDERED: MAGNESIUM SULFATE 4 GM PREMIX 100 ML IV ONE (10:15)
[2017-06-19] MEDS ORDERED: MAGNESIUM SULFATE 40 GM PREMIX 1,000 ML ONE (10:16)
[2017-06-19] MEDS ORDERED: MAGNESIUM SULFATE 4 GM PREMIX 100 ML ONE (10:16)
--- NOTE | 2017-06-19 10:30 | PD ---
HPI Chief Complaint severe VB Date Seen: Jun 19, 2017 Time Seen: 10:24 Travel History International Travel<30 Days: No Contact w/Intl Traveler<30Days: No Known Affected Area: No History of Present Illness HPI @ 28.0wks. [facility] at health dept. She presents with significant VB. She reports that she woke up and about 1hr ago she went to the [place] and saw a significant amt of bleeding. She feels +FM. No cramping or ctx. She doesn't think she broke her water. Last PO intake was milk last night. She denies any drug use. Weeks Gestation: 28 Para: 3 : 6 History Past Medical History Medical History: Denies Significant Hx Obstetric History Obstetric History x 3, FT, no complications TAB x 2 Past Surgical History Narrative Surgical ears, adenoids D&C x2 Family History Family History: Negative Social History Alcohol Use: No Tobacco Use: Yes Substance Abuse: No Allergies-Medications (Allergen,Severity, Reaction): Coded Allergies: doxycycline (Unverified Allergy, Severe, Nausea/Vomiting, 04/07/17) latex (Unverified Allergy, Mild, 04/07/17) loracarbef (Verified Allergy, Unknown, 04/07/17) Home Meds Active Scripts Nitrofurantoin Monohydrate Macrocrystals (Macrobid) 100 Mg Capsule, 100 MG PO BID for Infection for 7 Days, #14 CAP 0 Refills Prov:Charlotte Galicia MD 04/07/17 Ondansetron Odt (Zofran Odt) 4 Mg Tab, 4 MG SL TID Y for Nausea/Vomiting, #30 TAB 0 Refills Prov:Walter Wong MD 02/04/17 Promethazine (Phenergan) 25 Mg Tablet, 25 MG PO Q6H Y for NAUSEA OR VOMITING, # 12 TAB 0 Refills Prov:Walter Wong MD 02/04/17 Reported Medications Metoclopramide (Reglan) 10 Mg Tab, 10 MG PO QID, #120 TAB 0 Refills 04/07/17 Review of Systems Except as stated in HPI: all other systems reviewed are Neg Physical Exam Narrative General: well developed, well nourished, scared/crying HEENT: normocephalic atraumatic, extraocular movements intact, neck supple Abdomen: soft, gravid, nontender, nondistended Extremities: full range of motion, no pedal edema, no calf tenderness Skin: normal coloration, no rashes, no suspicious skin lesions noted Neurologic: cranial nerves 2-12 grossly intact, normal muscle tone, normal gait Psychiatric: normal mood and affect, appropriate FHTs: +120s [place]: quiet Speculum: approx 50cc of clot and fresh blood in vault, os appears multiparous and dilated US: abdominal US performed and posterolateral placenta seen, ?extending toward os, cooper breech Cvx: 3.5/50/-3, ?placental detachment of edge palpated US tech called in stat. We proceeded to US center and I started the exam. TVUS revealed footling breech, possible marginal previa. Tech arrived and formal scan performed. Data Data Orders Orders Ob (2e) Additional Admit Info (06/19/17 10:09) Vital Signs (Adult) .ON ADMISSION (06/19/17 10:14) ^ Labor Status (06/19/17 10:14) Urinalysis - C+S If Indicated (06/19/17 10:14) ^ Non Stress Test (06/19/17 10:14) Cbc No Diff, Includes Plts (06/19/17 10:14) Type And Screen (06/19/17 10:14) Kleihauer Betke ( Hgb) (06/19/17 10:14) Lactated Ringer's 1000 Ml Inj (Lr 1000 M (06/19/17 10:14) Betamethasone Inj (Celestone Soluspan In (06/19/17 10:15) Drug Screen, Random Urine (06/19/17 10:14) Magnesium Sulfate 4 Gm Premix (Magnesium (06/19/17 10:15) Fibrinogen (06/19/17 10:14) Magnesium Sulfate 4 Gm Premix (Magnesium (06/19/17 10:16) Magnesium Sulfate 40 Gm Premix (Magnesiu (06/19/17 10:16) MDM Plan 31y/o @ 28.0wks with severe vaginal bleeding. -- cvx 3-4cm dilated and membranes taught -- ?abruption vs marginal previa vs cervical change -- STAT labs: CBC, T&S, coags, fibrinogen, KB, UDS -- STAT meds: 6g bolus/2g per hour for CP neuroprotection, BMZ x2 doses -- NPO, IVF, riley -- ANES, NICU aware -- pt consented for stat /blood PRN Admit to [facility]. Diagnosis Diagnosis: Primary Impression: 28 weeks gestation of Additional Impressions: Vaginal bleeding during , antepartum labor in third trimester Osiel Meza MD Jun 19, 2017 10:30
[2017-06-19 10:32] LABS: HEMATOCRIT 27.3 % (35.0-46.0); MEAN CORPUSCULAR HEMOGLOBIN 30.9 PG (27.0-34.0); MEAN CORPUSCULAR HGB CONC 33.6 % (32.0-36.0); PLATELET COUNT 477 TH/MM3 (150-450); RED BLOOD COUNT 2.97 MIL/MM3 (4.00-5.30); RED CELL DISTRIBUTION WIDTH 13.2 % (11.6-17.2); REVIEW FLAG FINAL; WHITE BLOOD COUNT 20.4 TH/MM3 (4.0-11.0)
--- NOTE | 2017-06-19 11:00 | HHI.PR ---
BEER MERCHANT Note Note ANTEPARTUM ADMISSION H&P HPI HPI Chief Complaint severe VB Date Seen: Jun 19, 2017 Time Seen: 10:24 Travel History International Travel<30 Days: No Contact w/Intl Traveler<30Days: No Known Affected Area: No History of Present Illness HPI @ 28.0wks. [facility] at health dept. She presents with significant VB. She reports that she woke up and about 1hr ago she went to the BR and saw a significant amt of bleeding. She feels +FM. No cramping or ctx. She doesn't think she broke her water. Last PO intake was milk last night. She denies any drug use. Weeks Gestation: 28 Para: 3 : 6 History (Limited) History Past Medical History Medical History: Denies Significant Hx Obstetric History Obstetric History x 3, FT, no complications TAB x 2 Past Surgical History Narrative Surgical ears, adenoids D&C x2 Family History Family History: Negative Social History Alcohol Use: No Tobacco Use: Yes Substance Abuse: No Allergies-Medications Allergies-Medications (Allergen,Severity, Reaction): Coded Allergies: doxycycline (Unverified Allergy, Severe, Nausea/Vomiting, 04/07/17) latex (Unverified Allergy, Mild, 04/07/17) loracarbef (Verified Allergy, Unknown, 04/07/17) Home Meds Active Scripts Nitrofurantoin Monohydrate Macrocrystals (Macrobid) 100 Mg Capsule, 100 MG PO BID for Infection for 7 Days, #14 CAP 0 Refills Prov:Charlotte Galicia MD 04/07/17 Ondansetron Odt (Zofran Odt) 4 Mg Tab, 4 MG SL TID Y for Nausea/Vomiting, #30 TAB 0 Refills Prov:Walter Wong MD 02/04/17 Promethazine (Phenergan) 25 Mg Tablet, 25 MG PO Q6H Y for NAUSEA OR VOMITING, # 12 TAB 0 Refills Prov:Walter Wong MD 02/04/17 Reported Medications Metoclopramide (Reglan) 10 Mg Tab, 10 MG PO QID, #120 TAB 0 Refills 04/07/17 ROS Review of Systems Except as stated in HPI: all other systems reviewed are Neg Physical Exam Physical Exam Narrative General: well developed, well nourished, scared/crying HEENT: normocephalic atraumatic, extraocular movements intact, neck supple Abdomen: soft, gravid, nontender, nondistended Extremities: full range of motion, no pedal edema, no calf tenderness Skin: normal coloration, no rashes, no suspicious skin lesions noted Neurologic: cranial nerves 2-12 grossly intact, normal muscle tone, normal gait Psychiatric: normal mood and affect, appropriate FHTs: +120s [place]: quiet Speculum: approx 50cc of clot and fresh blood in vault, os appears multiparous and dilated US: abdominal US performed and posterolateral placenta seen, ?extending toward os, cooper breech Cvx: 3.5/50/-3, ?placental detachment of edge palpated US tech called in stat. We proceeded to US center and I started the exam. TVUS revealed footling breech, possible marginal previa. Tech arrived and formal scan performed. Data Data Data Orders Orders Ob (2e) Additional Admit Info (06/19/17 10:09) Vital Signs (Adult) .ON ADMISSION (06/19/17 10:14) ^ Labor Status (06/19/17 10:14) Urinalysis - C+S If Indicated (06/19/17 10:14) ^ Non Stress Test (06/19/17 10:14) Cbc No Diff, Includes Plts (06/19/17 10:14) Type And Screen (06/19/17 10:14) Kleihauer Betke ( Hgb) (06/19/17 10:14) Lactated Ringer's 1000 Ml Inj (Lr 1000 M (06/19/17 10:14) Betamethasone Inj (Celestone Soluspan In (06/19/17 10:15) Drug Screen, Random Urine (06/19/17 10:14) Magnesium Sulfate 4 Gm Premix (Magnesium (06/19/17 10:15) Fibrinogen (06/19/17 10:14) Magnesium Sulfate 4 Gm Premix (Magnesium (06/19/17 10:16) Magnesium Sulfate 40 Gm Premix (Magnesiu (06/19/17 10:16) MDM MDM Plan 31y/o @ 28.0wks with severe vaginal bleeding. -- cvx 3-4cm dilated and membranes taught -- ?abruption vs marginal previa vs cervical change -- STAT labs: CBC, T&S, coags, fibrinogen, KB, UDS -- STAT meds: 6g bolus/2g per hour for CP neuroprotection, BMZ x2 doses -- NPO, IVF, riley -- ANES, NICU aware -- pt consented for stat /blood PRN Admit to [facility]. Diagnosis Diagnosis: Primary Impression: 28 weeks gestation of Additional Impressions: Vaginal bleeding during , antepartum labor in third trimester Osiel Meza MD Jun 19, 2017 10:30 Osiel Meza MD Jun 19, 2017 11:00
[2017-06-19] MEDS ORDERED: LACTATED RINGER'S 1000 ML INJ 1,000 ML IV SCH (11:02)
[2017-06-19] MEDS ORDERED: CALCIUM GLUCONATE 10% 1 GM/10 ML VIAL IV PUSH PRN ×2 (11:15→16:15)
[2017-06-19] MEDS ORDERED: MAGNESIUM SULFATE 4 GM PREMIX 150 ML IV ONE (11:15)
[2017-06-19] MEDS: LACTATED RINGER'S 1000 ML INJ 1,000 ML IV SCH ×2 (11:59→20:22)
[2017-06-19] MEDS: BETAMETHASONE SOD PHOS/ACETATE SUSP 30 MG/5 ML VIAL IM SCH (11:59)
[2017-06-19 12:29] LABS: BACTERIA, URINE RARE /hpf; BLOOD, URINE NEG (NEG); COMMENT (UR) CULT NOT INDICATED; CULTURE IF INDICATED CULT NOT INDICATED; GLUCOSE,URINE NEG (NEG); KETONE, URINE NEG (NEG); MUCUS URINE FEW /lpf (OCC); NITRITE,URINE NEG (NEG); SQUAMOUS EPITHELIAL CELL URINE <1 /hpf (0-5); URINE COLOR LIGHT-YELLOW (YELLW/STRAW)
[2017-06-19 13:25] LABS: KLEIHAUER BETKE (FETAL HGB) 0.2 % (0.0-0.0)
[2017-06-19] MEDS: ONDANSETRON HCL 4 MG/2 ML VIAL IV PUSH PRN (13:52)
[2017-06-19] MEDS ORDERED: PANTOPRAZOLE SODIUM 40 MG VIAL IV PUSH SCH (14:00)
[2017-06-19] MEDS: PANTOPRAZOLE SOD 20 MG DELAYED RELEASE TAB PO SCH (15:01)
[2017-06-19] MEDS: MAGNESIUM SULFATE 40 GM PREMIX 1,000 ML IV SCH (16:24)
[2017-06-19] MEDS ORDERED: PREN29TA PO (16:30)
[2017-06-19] MEDS ORDERED: ZOLO50TA PO (16:30)
[2017-06-19] MEDS: ACETAMINOPHEN 325 MG TAB PO PRN (17:44)
[2017-06-19] MEDS: SERTRALINE HCL 50 MG TAB PO SCH (20:23)
[2017-06-20] MEDS: LACTATED RINGER'S 1000 ML INJ 1,000 ML IV SCH (04:15)
[2017-06-20] MEDS: ONDANSETRON HCL 4 MG/2 ML VIAL IV PUSH PRN ×2 (06:29→20:57)
[2017-06-20] MEDS: PANTOPRAZOLE SOD 20 MG DELAYED RELEASE TAB PO SCH (08:35)
[2017-06-20] MEDS: ACETAMINOPHEN 325 MG TAB PO PRN (08:36)
[2017-06-20] MEDS: BETAMETHASONE SOD PHOS/ACETATE SUSP 30 MG/5 ML VIAL IM SCH (10:35)
--- NOTE | 2017-06-20 11:06 | PD.OB.ANTE ---
Subjective Interval History Pt is doing much better this morning and did not have any bleeding overnight. She has been able to eat without nausea/vomiting. Objective Lab & Micro Results Test 06/19/17 11:00 Urine Color LIGHT-YELLOW Urine Turbidity CLEAR Urine pH 7.0 Urine Specific [place] 1.008 Urine Protein NEG mg/dL Urine Glucose (UA) NEG mg/dL Urine Ketones NEG mg/dL Urine Occult Blood NEG Urine Nitrite NEG Urine Bilirubin NEG Urine Urobilinogen LESS THAN 2.0 MG/DL Urine Leukocyte Esterase NEG Urine RBC 1 /hpf Urine Squamous Epithelial Cells <1 /hpf Urine Bacteria RARE /hpf Urine Mucus FEW /lpf Microscopic Urinalysis Comment CULT NOT INDICATED Urine Opiates Screen NEG Urine Barbiturates Screen NEG Urine Amphetamines Screen NEG Urine Benzodiazepines Screen NEG Urine Cocaine Screen NEG Urine Cannabinoids Screen POS Physical Exam GENERAL: Well-nourished, well-developed patient. CARDIOVASCULAR: Regular rate and rhythm without murmurs, gallops, or rubs. RESPIRATORY: Breath sounds equal bilaterally. No accessory muscle use. ABDOMEN/GI: Abdomen soft, non-tender. Fundus: [-] GENITOURINARY: Uterine Contractions: None FHT's: Category: I Baseline: 135 Reactive: Yes, up to 145 Variability: Moderate Decels: None EXTREMITIES: No cyanosis or edema, non-tender, without signs of DVT. Assessment and Plan Problem List: (1) 28 weeks gestation of ICD Codes: Z3A.28 - 28 weeks gestation of Status: Acute (2) Vaginal bleeding during , antepartum ICD Codes: O46.90 - Antepartum hemorrhage, unspecified, unspecified trimester Status: Acute (3) Placenta previa ICD Codes: O44.00 - Complete placenta previa NOS or without hemorrhage, unspecified trimester Assessment and Plan 31-year-old at 28/2 weeks gestation, KEN 09/03/2017, presented with severe vaginal bleeding secondary to posterior marginal placenta previa. Not currently bleeding -US performed on 05/19/70: Posterior placenta KRAIG and Grade 1 with marginal- complete placenta previa, three-vessel umbilical cord. Transabdominal cervical length within normal limits at 33 mm with no for nailing observed. Francois , weight 2 pounds, 15 ounces -WBC 20.4, H/H 9.2/27.3 on admission -Fibrinogen elevated at 593 -Received 24 hours of magnesium, discontinued Valerio catheter -Received 2 doses of betamethasone IM -Plan to keep in the hospital until delivery -Tylenol 650 mg by mouth every 4 hours when necessary for pain -Zofran 4 mg IV every 6 hours when necessary nausea -Protonix 20 mg by mouth for GI protection -Continue Zoloft 50 mg by mouth daily for depression -DC IV fluids -Regular basic diet -Bilateral SCDs Stacey Frazier MD R2 Jun 20, 2017 11:06
[2017-06-20] MEDS: MAGNESIUM SULFATE 40 GM PREMIX 1,000 ML IV SCH (12:15)
[2017-06-20 15:41] VITALS: RESP 18; TEMP 98.8
[2017-06-20 15:42] VITALS: BP 106/48; PULSE 87
[2017-06-20 19:59] VITALS: BP 103/55; PULSE 94; RESP 18
[2017-06-20 20:00] VITALS: TEMP 98.1
[2017-06-20] MEDS: SERTRALINE HCL 50 MG TAB PO SCH (20:01)
[2017-06-20 21:59] VITALS: BP 107/57; PULSE 81; RESP 20
[2017-06-20] MEDS ORDERED: ALUMINUM/MAGNESIUM/SIMETH 30 ML CUP PO PRN (23:00)
[2017-06-21] VITALS (102 sets, daily range): BP systolic 93–111; BP diastolic 36–63; PULSE 73–98; RESP 18–20; TEMP 97.7–98.3
[2017-06-21] MEDS ORDERED: AMPICILLIN 2 GM/NS 100 ML IV SCH ×4 (02:00→08:00)
[2017-06-21] MEDS: ERYTHROMYCIN EC 500 MG TABEC PO SCH ×3 (06:00→23:54)
[2017-06-21] MEDS ORDERED: MAGNESIUM SULFATE 40 GM PREMIX 1,000 ML IV SCH ×2 (06:19→13:58)
[2017-06-21] MEDS ORDERED: MAGNESIUM SULFATE 4 GM PREMIX 100 ML IV ONE (06:30)
--- NOTE | 2017-06-21 06:30 | PD.OB.ANTE ---
Subjective Diagnosis: (1) 28 weeks gestation of (2) Vaginal bleeding during , antepartum (3) Placenta previa Interval History premature rupture the membranes at 12:50 am Objective Vital Signs Vital Signs Date Time Temp Pulse Resp B/P (MAP) Pulse Ox O2 Delivery O2 Flow Rate FiO2 06/21/17 04:09 87 103/40 (61) 06/21/17 04:08 98.3 18 06/21/17 02:34 98.2 06/21/17 00:34 79 99/37 (57) 06/21/17 00:33 98.3 06/21/17 00:32 18 06/20/17 21:59 81 20 107/57 (74) 06/20/17 20:00 98.1 06/20/17 19:59 94 18 103/55 (71) 06/20/17 15:42 87 106/48 (67) 06/20/17 15:41 98.8 18 Physical Exam GENERAL: Well-nourished, well-developed patient. CARDIOVASCULAR: Regular rate and rhythm without murmurs, gallops, or rubs. RESPIRATORY: Breath sounds equal bilaterally. No accessory muscle use. ABDOMEN/GI: Abdomen soft, non-tender. Fundus: [-] GENITOURINARY: External Genitalia: intact and normal in appearance Cervix: [-] Dilatation: [-4] Effacement: [50-] Station: [-3] Presentation: [-vtx] Membranes: [PPROM-] Uterine Contractions: [q 6-7 min-] FHT's: Category: [1-] Baseline: [-133] Reactive: [-yes] Variability: [mod-] Decels: [none-] EXTREMITIES: No cyanosis or edema, non-tender, without signs of DVT. Assessment and Plan Problem List: (1) 28 weeks gestation of ICD Codes: Z3A.28 - 28 weeks gestation of Status: Acute (2) Vaginal bleeding during , antepartum ICD Codes: O46.90 - Antepartum hemorrhage, unspecified, unspecified trimester Status: Acute (3) Placenta previa ICD Codes: O44.00 - Complete placenta previa NOS or without hemorrhage, unspecified trimester Assessment and Plan 31-year-old at 28/2 weeks gestation, KEN 09/03/2017, presented with severe vaginal bleeding secondary to posterior marginal placenta previa. Not currently bleeding PPROM at 1250 am today -US performed on 05/19/70: Posterior placenta KRAIG and Grade 1 with marginal- complete placenta previa, three-vessel umbilical cord. Transabdominal cervical length within normal limits at 33 mm with no for nailing observed. Francois , weight 2 pounds, 15 ounces -WBC 20.4, H/H 9.2/27.3 on admission -Fibrinogen elevated at 593 -Received 24 hours of magnesium, discontinued Valerio catheter -Received 2 doses of betamethasone IM -Plan to keep in the hospital until delivery -Tylenol 650 mg by mouth every 4 hours when necessary for pain -Zofran 4 mg IV every 6 hours when necessary nausea -Protonix 20 mg by mouth for GI protection -Continue Zoloft 50 mg by mouth daily for depression - IV fluids -Regular basic diet -Bilateral SCDs Imp- bleeding previa post PPROM threatened PTL Plan - IV magSo4 for tocolysis Kartik Quinn II, MD Jun 21, 2017 06:30
[2017-06-21] MEDS: LACTATED RINGER'S 1000 ML INJ 1,000 ML IV SCH (07:30)
[2017-06-21] MEDS: MAGNESIUM SULFATE 40 GM PREMIX 1,000 ML IV SCH (08:15)
[2017-06-21] MEDS ORDERED: LIDOCAINE 2% JELLY 30 ML TUBE TOPICAL ONE (09:00)
--- NOTE | 2017-06-21 18:51 | HHI.PR ---
Addendum to Inpatient Note Additional Information Consult Maternal Hx: 31 y/o, , white female at 29 weeks gestation with diagnosis of PROM, vaginal bleeding, placenta previa and PTL. Mother admitted to [facility] on 06/19/17 secondary to vaginal bleeding. Most recent Ultrasound on 06/20/17 confirms intrauterine with weight of 2 lbs 15 ounces. EDC of 09/03/17. Maternal risk factors/complications: Depression. Late care. Maternal Labs: Blood type A+, Rubella immune, RPR non reactive, Hepatitis B negative, HIV negative, GBS unknown Maternal Medications: PNV, Zoloft, Zofran, Xanax x 2 during , Phenergan and Reglan Received Betamethasone x 2 and Magnesium sulfate Social: Marital status: not . Mother states that father of the baby is not involved. Family Hx: Mother reports no genetic or inherited conditions. Reports her other 3 children are well. Substance Abuse: Denies, other than taking Xanax x 2 during . Admits to smoking 1/2 ppd of cigarettes. Discussion: I met with mother at her bedside. Discussed possibility of delivery at 29-30 weeks gestation. Anticipate this male infant to be delivered secondary to vaginal bleeding, placenta previa and PPROM. is estimated to weigh > 1300 grams at 29 3/7 weeks gestation. This consultation included discussion of generalized care of the baby in the NICU, common problems, complications and survival and/or disability potential if delivered at this time. I provided information regarding the [employer] national statistics on overall survival at 29+ weeks and 1300 grams at >95% and intact survival without significant neurodevelopment disability at >95%. We reviewed the expectations with delivery of an infant under these circumstances including delivery room atmosphere, infant resuscitation and stabilization. Also included in this review is the admission process to the NICU, including possible procedures such as intubation and placement of umbilical catheter(s). Additionally, there was a discussion of the disease processes that may affect an of this gestation, including but not limited to respiratory distress, infection and nutritional concerns. Discussion detailed various forms of respiratory support for immature lungs including use of surfactant and placement of umbilical catheters and/or PICC/PIV lines. Discussion focused on CPAP and/or ventilator support as needed for an infant of this gestation. There was a review of nutritional support challenges including IV and gavage feeding. There was discussion regarding of possible feeding intolerances and intestinal complications, including necrotizing enterocolitis a potential cause of serious illness and . Breast feeding and early breast milk pumping was strongly encouraged. Explained that is at risk for hyperbilirubinemia and may require treatment with phototherapy. There is a possibility that that baby could need a blood transfusion, which would be addressed in greater detail should the need arise. As the baby matures , it was explained that eye exams would be obtained to evaluate the immature eye for retinopathy of prematurity (ROP). There was a review of the potential for intraventricular hemorrhage (IVH), sonogram testing and subsequent risk of neurodevelopmental delay. It was explained that there is an increased potential for neurodevelopmental delay secondary to prematurity itself, even if the infant does not have IVH or ROP. Support systems in place at [facility] were reviewed and included , Case Management and Ministry which the family may utilize. Expected discharge would likely occur closer to the due date if the has an uncomplicated hospitalization. Greater than 50% of the consultation time was spent with the patient. Maria R Conn Jun 21, 2017 18:51
[2017-06-21] MEDS: AMPICILLIN 2 GM/NS 100 ML IV SCH ×2 (20:00)
[2017-06-21] MEDS: SERTRALINE HCL 50 MG TAB PO SCH (20:57)
[2017-06-21] MEDS: ZOLPIDEM TARTRATE 10 MG TAB PO PRN ×2 (22:18→22:42)
[2017-06-21] MEDS ORDERED: LORazepam 2 MG/ML VIAL IV ONE (22:30)
[2017-06-22] VITALS (160 sets, daily range): BP systolic 91–113; BP diastolic 39–72; PULSE 72–118; RESP 18–20; TEMP 97.5–99; O2SAT 96–98
[2017-06-22 02:00] LABS: MEAN CELL VOLUME 93.7 FL (80.0-100.0); MEAN CORPUSCULAR HEMOGLOBIN 31.3 PG (27.0-34.0); MEAN CORPUSCULAR HGB CONC 33.4 % (32.0-36.0); PLATELET COUNT 343 TH/MM3 (150-450); RED BLOOD COUNT 2.25 MIL/MM3 (4.00-5.30); RED CELL DISTRIBUTION WIDTH 13.3 % (11.6-17.2); REVIEW FLAG FINAL; WHITE BLOOD COUNT 22.5 TH/MM3 (4.0-11.0)
[2017-06-22 02:25] LABS: BICARBONATE 22.6 MEQ/L (21.0-32.0); MAGNESIUM 4.9 MG/DL (1.5-2.5); POTASSIUM 3.4 MEQ/L (3.5-5.1)
[2017-06-22 02:46] LABS: RUBELLA IGG ANTIBODY 24.5 IU/mL (10.0-500.0); RUBELLA STATUS IMMUNE (IMMUNE)
[2017-06-22 02:48] LABS: CALCIUM-PROTEIN CORRECTED 7.5 MG/DL (8.5-10.1)
[2017-06-22] MEDS: ERYTHROMYCIN EC 500 MG TABEC PO SCH ×3 (06:00→18:43)
[2017-06-22] MEDS: LACTATED RINGER'S 1000 ML INJ 1,000 ML IV SCH (07:33)
[2017-06-22] MEDS ORDERED: diphenhydrAMINE HCL 25 MG CAP PO PRN (08:00)
[2017-06-22] MEDS ORDERED: SODIUM CHLOR 0.9% 250 ML INJ 250 ML IV ONE (08:00)
[2017-06-22] MEDS ORDERED: POTASSIUM CHLOR 20 MEQ PREMIX 100 ML IV ONE (08:00)
[2017-06-22] MEDS: PANTOPRAZOLE SOD 20 MG DELAYED RELEASE TAB PO SCH ×2 (08:09→09:34)
[2017-06-22] MEDS: AMPICILLIN 2 GM/NS 100 ML IV SCH ×6 (08:10→20:00)
[2017-06-22] MEDS ORDERED: POTASSIUM CHLORIDE 25 MEQ EFFERVESCENT TAB PO ONE (08:15)
[2017-06-22] MEDS: ACETAMINOPHEN 325 MG TAB PO PRN ×3 (11:09→22:19)
--- NOTE | 2017-06-22 11:14 | PD.OB.ANTE ---
Subjective Diagnosis: (1) 28 weeks gestation of Diagnosis: Principal (2) Vaginal bleeding during , antepartum Diagnosis: Principal (3) Placenta previa Diagnosis: Principal Interval History Ms Preez is a 31YO at 29/4 weeks admitted for PPROM and significant vaginal bleeding. She slept well overnight with ambien and had no acute events overnight. She is tolerating PO. Denies CP, SOB, dizziness, N/V/D, pain, DVT pain. She is having a small amount of mucous discharge but no bleeding. Antepartum ROS: Reports: Loss of fluid, Vaginal bleeding, Denies: Contractions Objective Vital Signs Vital Signs Date Time Temp Pulse Resp B/P (MAP) Pulse Ox O2 Delivery O2 Flow Rate FiO2 06/22/17 09:00 87 102/57 (72) 06/22/17 08:05 84 06/22/17 08:00 88 06/22/17 08:00 87 101/56 (71) 06/22/17 07:31 98.3 18 06/22/17 07:00 93 97/52 (67) 06/22/17 06:00 92 101/56 (71) 06/22/17 05:23 18 06/22/17 05:00 89 104/57 (73) 06/22/17 04:20 92 06/22/17 04:15 89 06/22/17 04:10 93 06/22/17 04:05 90 06/22/17 04:00 89 102/60 (74) 06/22/17 04:00 87 06/22/17 03:27 18 06/22/17 03:25 90 06/22/17 03:20 87 06/22/17 03:15 89 06/22/17 03:10 93 06/22/17 03:05 90 06/22/17 03:00 89 103/56 (72) 06/22/17 03:00 89 06/22/17 02:05 87 06/22/17 02:00 86 103/52 (69) 06/22/17 02:00 95 06/22/17 01:30 89 06/22/17 01:25 87 06/22/17 01:20 89 06/22/17 01:15 89 06/22/17 01:10 91 06/22/17 01:05 88 06/22/17 01:00 90 105/54 (71) 06/22/17 01:00 89 06/22/17 00:55 89 06/22/17 00:50 88 06/22/17 00:45 88 06/22/17 00:40 89 06/22/17 00:35 90 06/22/17 00:30 90 06/22/17 00:25 92 06/22/17 00:20 89 06/22/17 00:15 89 06/22/17 00:10 89 06/22/17 00:05 88 06/22/17 00:00 86 06/22/17 00:00 86 101/55 (70) 06/21/17 23:50 87 06/21/17 23:45 89 06/21/17 23:40 85 06/21/17 23:35 86 06/21/17 23:30 86 06/21/17 23:25 83 06/21/17 23:20 84 06/21/17 23:15 80 06/21/17 23:10 85 06/21/17 23:05 84 06/21/17 23:00 84 108/62 (77) 06/21/17 23:00 80 06/21/17 22:35 20 06/21/17 22:20 82 06/21/17 22:15 85 06/21/17 22:10 92 06/21/17 22:00 82 110/55 (73) 06/21/17 21:00 82 103/52 (69) 06/21/17 20:00 79 100/52 (68) 06/21/17 19:44 97.9 06/21/17 19:44 18 06/21/17 19:00 18 06/21/17 19:00 77 100/51 (67) 06/21/17 18:01 90 97/63 (74) 06/21/17 17:00 18 06/21/17 17:00 97.7 06/21/17 16:00 18 06/21/17 16:00 78 99/49 (66) 06/21/17 15:00 18 06/21/17 15:00 80 95/49 (64) 06/21/17 14:10 77 06/21/17 14:00 76 06/21/17 14:00 80 104/49 (67) 06/21/17 14:00 18 06/21/17 13:55 77 06/21/17 13:50 81 06/21/17 13:45 81 06/21/17 13:40 83 06/21/17 13:35 90 06/21/17 13:30 84 06/21/17 13:25 86 06/21/17 13:20 94 06/21/17 13:15 89 06/21/17 13:10 90 06/21/17 13:05 91 06/21/17 13:00 18 06/21/17 13:00 92 06/21/17 13:00 90 101/52 (68) 06/21/17 12:55 89 06/21/17 12:50 90 06/21/17 12:45 88 06/21/17 12:40 92 06/21/17 12:35 90 06/21/17 12:30 90 06/21/17 12:25 90 06/21/17 12:20 88 06/21/17 12:15 92 06/21/17 12:10 92 06/21/17 12:05 89 06/21/17 12:00 87 06/21/17 12:00 88 18 98/49 (65) 06/21/17 11:55 86 06/21/17 11:50 85 06/21/17 11:45 86 06/21/17 11:40 85 06/21/17 11:35 83 06/21/17 11:30 84 06/21/17 11:25 81 06/21/17 11:20 79 06/21/17 11:15 80 06/21/17 11:10 82 06/21/17 11:05 81 06/21/17 11:00 78 06/21/17 11:00 80 102/49 (66) 06/21/17 10:55 81 Lab & Micro Results Test 06/22/17 01:50 White Blood Count 22.5 TH/MM3 Red Blood Count 2.25 MIL/MM3 Hemoglobin 7.0 GM/DL Hematocrit 21.0 % Mean Corpuscular Volume 93.7 FL Mean Corpuscular Hemoglobin 31.3 PG Mean Corpuscular Hemoglobin Concent 33.4 % Red Cell Distribution Width 13.3 % Platelet Count 343 TH/MM3 Mean Platelet Volume 6.6 FL Blood Urea Nitrogen 6 MG/DL Creatinine 0.33 MG/DL Random Glucose 90 MG/DL Total Protein 5.5 GM/DL Calcium Level 6.7 MG/DL Magnesium Level 4.9 MG/DL Sodium Level 137 MEQ/L Potassium Level 3.4 MEQ/L Chloride Level 105 MEQ/L Carbon Dioxide Level 22.6 MEQ/L Anion Gap 9 MEQ/L Estimat Glomerular Filtration Rate 236 ML/MIN Protein Corrected Calcium 7.5 MG/DL Rubella Immunity Screen IMMUNE Rubella Antibody, Quantitative 24.5 IU/mL Physical Exam GENERAL: Well-nourished, well-developed patient in NAD lying in bed. CARDIOVASCULAR: Regular rate and rhythm without murmur, gallop, or rub. RESPIRATORY: Breath sounds equal bilaterally. No accessory muscle use. ABDOMEN/GI: Abdomen soft, non-tender, nondistended. Fundus: 29 weeks Cervix not assessed due to cervical rest Dilation: 3-4 Effacement: 50% Station: - Contractions: no FHT's: Category: 1 Baseline: 130 Reactive: yes Variability: moderate Decels: none EXTREMITIES: No cyanosis or edema, non-tender, without signs of DVT. Assessment and Plan Problem List: (1) 28 weeks gestation of ICD Codes: Z3A.28 - 28 weeks gestation of Status: Acute (2) Vaginal bleeding during , antepartum ICD Codes: O46.90 - Antepartum hemorrhage, unspecified, unspecified trimester Status: Acute (3) Placenta previa ICD Codes: O44.00 - Complete placenta previa NOS or without hemorrhage, unspecified trimester Assessment and Plan 31-year-old at 29/4 weeks gestation, KEN 09/03/2017, presented with severe vaginal bleeding secondary to posterior marginal placenta previa. Not currently bleeding, but with small amount of mucous discharge. Tachycardia resolved. PPROM at 1250 am 06/21 -US performed on 05/19/70: Posterior placenta KRAIG and Grade 1 with marginal- complete placenta previa, three-vessel umbilical cord. Transabdominal cervical length within normal limits at 33 mm with no for nailing observed. Francois , weight 2 pounds, 15 ounces -WBC 20.4, H/H 9.2/27.3 on admission 06/21-->22.5, H/H 7.0/21.0 06/22 -Fibrinogen elevated at 593 -Received 24 hours of magnesium, discontinued Valerio catheter -Received 2 doses of betamethasone IM -Plan to keep in the hospital until delivery -Tylenol 650 mg by mouth every 4 hours when necessary for pain -Zofran 4 mg IV every 6 hours when necessary nausea -Protonix 20 mg by mouth for GI protection -Continue Zoloft 50 mg by mouth daily for depression -UDS positive cannabinoids -Rubella immune PLAN: Manage expectantly -IV fluids -Regular basic diet -Bilateral SCDs -Discontinue Mag sulfate -2u PRBCs today w/type and screen -Follow up H/H s/p transfusion -Hypokalemia to 3.4 06/22--replete w/K-lyte Eff x1 25meq PO -Continue IV ampicillin/erythromycin 2doses, then 5 days PO abx -Hep/HIV panel pending Imp- bleeding previa post PPROM threatened PTL Pop Zuleta MD R1 Jun 22, 2017 11:14
[2017-06-22] MEDS: ONDANSETRON HCL 4 MG/2 ML VIAL IV PUSH PRN ×2 (16:16→22:14)
[2017-06-22] MEDS: SERTRALINE HCL 50 MG TAB PO SCH (20:22)
[2017-06-22 20:55] LABS: HEMATOCRIT 26.1 % (35.0-46.0); REVIEW FLAG FINAL
--- NOTE | 2017-06-22 23:02 | PD.LABORPN ---
Subjective Subjective HD # 5 Afeb VSS ROM # 3 .Temp- 99 Patient has had a great increase in her abdominal pain through the day, lower uterine segment is quite tender, patient is a times writhing in the bed and crying. from The pain. Patient is passing some brownish discharge and of yellow appearing liquid with foul odor Heart rate tracing is reactive and no contractions seen Cervix examination is 3-4 cm 40% and -3 and vertex presentation, no significant vaginal bleeding is occurring White blood cell counts 22,000 [was 20,000 3 days ago] EFW -on admission 1340 gm Impression--PPROM at 29-1/2 weeks with developing chorioamnionitis, marginal posterior previa status post the sentinel bleed , patient received 2 units of blood this morning due to anemia now H&H is 9 and 24% Plan-- this point I believe the uterine evacuation is needed due to infection, we'll change her antibodies to IV ampicillin gentamicin, over to the labor jimenez and begin Pitocin after epidural anesthesia, if heavy bleeding vaginally occurs ,or intolerance to labor will move to section for delivery Objective Vital Signs Vital Signs Date Time Temp Pulse Resp B/P (MAP) Pulse Ox O2 Delivery O2 Flow Rate FiO2 06/22/17 19:57 98.3 06/22/17 19:57 20 06/22/17 19:05 82 06/22/17 19:00 82 06/22/17 19:00 85 106/57 (73) 06/22/17 18:55 84 06/22/17 18:50 81 06/22/17 18:45 86 06/22/17 18:40 90 06/22/17 18:30 90 06/22/17 18:25 84 06/22/17 18:20 85 06/22/17 18:15 82 06/22/17 18:10 87 06/22/17 18:05 84 06/22/17 18:00 94 06/22/17 18:00 90 91/39 (56) 06/22/17 17:55 87 06/22/17 17:50 88 06/22/17 17:45 89 06/22/17 17:40 91 06/22/17 17:35 84 06/22/17 17:30 83 06/22/17 17:25 85 06/22/17 17:20 87 06/22/17 17:15 86 06/22/17 17:10 91 06/22/17 17:05 87 06/22/17 17:00 118 06/22/17 17:00 91 104/50 (68) 06/22/17 16:55 87 06/22/17 16:50 90 06/22/17 16:45 91 06/22/17 16:40 91 06/22/17 16:35 92 06/22/17 16:30 96 06/22/17 16:25 87 06/22/17 16:20 88 06/22/17 16:10 97 06/22/17 16:05 91 06/22/17 16:00 101 103/50 (67) 06/22/17 16:00 92 06/22/17 15:55 98 06/22/17 15:53 20 06/22/17 15:50 100 06/22/17 15:47 98.3 06/22/17 15:45 98 06/22/17 15:40 100 06/22/17 15:35 95 06/22/17 15:30 95 06/22/17 15:25 94 06/22/17 15:20 91 06/22/17 15:15 89 06/22/17 15:10 84 06/22/17 15:05 86 06/22/17 15:00 88 104/64 (77) 06/22/17 15:00 84 06/22/17 14:55 84 Objective Pelvic Exam: Cervix: [-] Dilatation: [3-4-] Effacement: [-] 40% Station: [-3] Presentation: [-vtx] Membranes: ruptured] Uterine Contractions: [Case vaginal-] FHT's: Category: [1-] Baseline: [-133] Reactive: [yes-] Variability: [mod-] Decels: [-0] Weeks Gestation: 29 Gest Age Assessed Date: Jun 18, 2017 Gest Age Assessed Time: 08:00 Pt started active labor?: No Medical induction of labor?: Yes Medical induction start date: Jun 22, 2017 Medical induction start time: 23:30 Artificial rupture of membrane: No Assessment/Plan Problem List: (1) 28 weeks gestation of ICD Codes: Z3A.28 - 28 weeks gestation of Status: Acute (2) Vaginal bleeding during , antepartum ICD Codes: O46.90 - Antepartum hemorrhage, unspecified, unspecified trimester Status: Acute (3) Placenta previa ICD Codes: O44.00 - Complete placenta previa NOS or without hemorrhage, unspecified trimester Assessment and Plan Intrauterine at 29-30 weeks with PPROM for 3 days. Now with increasing abdominal pain and drainage of foul smelling vaginal discharge yellow tented water and a rising white blood cell count 22,000 all size consistent with developing and the ongoing chorioamnionitis Also patient has a marginal posterior previa status post a sentinel bleed 5 days ago with minimal bleeding since Plan is moved to a labor side, begin Pitocin, give epidural anesthesia due to the amount of pain the patient's having already and affect vaginal delivery and uterine evacuation, begin ampicillin gentamicin IV, if significant vaginal bleeding occurs for intolerance of labor than bowel moved to section Kartik Quinn II, MD Jun 22, 2017 23:02
[2017-06-22] MEDS ORDERED: LIDOCAINE HCL 1% 50 ML VIAL INFIL PRN (23:15)
[2017-06-22] MEDS ORDERED: OXYTOCIN 30 UNITS-500ML PREMIX 500 ML IV ONE (23:15)
[2017-06-22] MEDS ORDERED: GENTAMICIN INJ 80 MG in SODIUM CHLORIDE 0.9% INJ 100 ML IV SCH (23:15)
[2017-06-22] MEDS ORDERED: MINERAL OIL 10 ML VIAL TOPICAL PRN (23:15)
[2017-06-23] VITALS (100 sets, daily range): BP systolic 86–123; BP diastolic 55–80; PULSE 54–84; RESP 16–20; TEMP 98–98.8
[2017-06-23] MEDS: LACTATED RINGER'S 1000 ML INJ 1,000 ML IV SCH ×2 (00:09→04:46)
[2017-06-23] MEDS: GENTAMICIN/SOD CHL 80 MG/100 ML IV SCH ×3 (00:53→16:04)
[2017-06-23] MEDS: AMPICILLIN 2 GM/NS 100 ML IV SCH ×8 (02:00→20:00)
[2017-06-23] MEDS ORDERED: DO NOT ADMINISTER ANTICOAGULANTS PRN (04:15)
[2017-06-23] MEDS ORDERED: fentaNYL 2MCG-BUPIV 0.125% 100 ML EPIDURAL SCH (04:15)
[2017-06-23] MEDS ORDERED: OXYTOCIN 30 UNITS/NS 500ML PREMIX IV SCH (04:15)
[2017-06-23] MEDS ORDERED: ePHEDrine/NS 25 MG/5 ML SYR IV PUSH PRN (04:15)
[2017-06-23] MEDS ORDERED: NO SYSTEM NARCOTICS PRN (04:15)
[2017-06-23] MEDS: ERYTHROMYCIN EC 500 MG TABEC PO SCH ×2 (06:00)
[2017-06-23] MEDS ORDERED: METHYLERGONOVINE MALEATE 0.2 MG/ML VIAL ONE (08:06)
[2017-06-23] MEDS ORDERED: CARBOPROST TROMETHAMINE 250 MCG/ML VIAL ONE (08:06)
--- NOTE | 2017-06-23 08:27 | PD.OB.DELI ---
Weeks gestation: 29 Gest age assessed date: Jun 18, 2017 Gest age assessed time: 08:00 Pt started active labor?: No Active labor start date: Jun 23, 2017 Active labor start time: 06:00 Medical induction of labor?: Yes Medical induction start date: Jun 22, 2017 Medical induction start time: 23:30 Artificial rupture of membrane: No Anesthesia: Epidural Episiotomy: None Vaginal Delivery: Normal, Spontaneous Presentation: Occiput anterior, Vertex Nuchal Cord: None Delayed cord clamping (45 sec): Yes Delivery date: Jun 23, 2017 Delivery time: 08:09 One Minute : 5 Five Minute : 8 Weight: 1300g Placenta: Spontaneous delivery, Intact, 3 vessel cord, Cord pH (7.38) Laceration: No lacerations Estimated blood loss: 100cc Additional Information Delivered by Dr Zuleta and supervised by Dr Quinn complicated by PPROM and chorioamnionitis. Pop Zuleta MD R1 Jun 23, 2017 08:27
[2017-06-23] MEDS ORDERED: OXYTOCIN 30 UNITS-500ML PREMIX 500 ML IV SCH (08:30)
[2017-06-23] MEDS ORDERED: SODIUM CHLORIDE 0.9% FLUSH 10 ML FLUSH IV FLUSH PRN (08:30)
[2017-06-23] MEDS ORDERED: BENZOCAINE 20% TOPICAL SPRAY 60 ML CAN TOPICAL PRN (08:30)
[2017-06-23] MEDS ORDERED: DOCUSATE SODIUM 50 MG/SENNA 8.6 MG TAB PO PRN (08:30)
[2017-06-23] MEDS ORDERED: WITCH HAZEL 50%/GLYCERIN 12.5% 40 PAD JAR TOPICAL PRN (08:30)
[2017-06-23 08:49] LABS: BLOOD GAS BASE EXCESS -3.3 mmol/L (-2-2); BLOOD GAS O2 HGB SATURATION 66 % (90-100); CORD BLOOD GAS HCO3 21 mmol/L (21-29); CORD BLOOD GAS PCO2 36 mmHG (34-78); CORD BLOOD GAS PH 7.38 (7.14-7.42); CORD BLOOD GAS PO2 29 mmHG (3.0-40.0); DRAW SITE CORD BLOOD; STAT NO
[2017-06-23] MEDS: PANTOPRAZOLE SOD 20 MG DELAYED RELEASE TAB PO SCH (08:50)
[2017-06-23] MEDS: SODIUM CHLORIDE 0.9% FLUSH 10 ML FLUSH IV FLUSH SCH ×2 (09:00→20:00)
[2017-06-23] MEDS: IBUPROFEN 800 MG TAB PO PRN ×2 (10:52→19:59)
[2017-06-23] MEDS ORDERED: DIPHTH/TETANUS/ACEL PERTUSSIS (BOOSTER) 0.5 ML VIAL/PFS IM ONE (16:00)
[2017-06-23] MEDS ORDERED: MEASLES, MUMPS, RUBELLA VACCINE 0.5 ML VIAL SQ ONE (16:00)
[2017-06-23] MEDS: ACETAMINOPHEN 325 MG TAB PO PRN (16:04)
[2017-06-23] MEDS: SERTRALINE HCL 50 MG TAB PO SCH (19:59)
[2017-06-24] MEDS: GENTAMICIN/SOD CHL 80 MG/100 ML IV SCH ×2 (00:27→08:58)
[2017-06-24] MEDS: LACTATED RINGER'S 1000 ML INJ 1,000 ML IV SCH ×3 (00:28→19:30)
[2017-06-24] MEDS: ZOLPIDEM TARTRATE 10 MG TAB PO PRN ×2 (00:28→21:29)
[2017-06-24] MEDS: AMPICILLIN 2 GM/NS 100 ML IV SCH ×4 (00:28→08:57)
[2017-06-24] MEDS: IBUPROFEN 800 MG TAB PO PRN ×3 (05:41→21:29)
--- NOTE | 2017-06-24 07:22 | HHI.OB ---
Subjective Post Day: 2 Remarks Ms Perez had no acute events overnight. Pain controlled w/ibuprofen, tolerating PO, ambulating w/o dizziness, voiding and stooling appropriately. Lochia light/decreasing. Denies CP, SOB, N/V/D, and DVT pain. Objective Vitals/I&O Vital Signs Date Time Temp Pulse Resp B/P (MAP) Pulse Ox O2 Delivery O2 Flow Rate FiO2 06/23/17 19:30 98.0 66 16 110/77 (88) 06/23/17 12:30 98.3 56 18 115/68 (84) 06/23/17 10:00 59 119/76 (90) 06/23/17 09:30 65 115/74 (88) 06/23/17 09:15 18 06/23/17 09:00 54 119/72 (88) 06/23/17 08:46 74 101/60 (74) 06/23/17 08:38 17 06/23/17 08:30 62 116/80 (92) 06/23/17 08:20 18 06/23/17 08:20 98.2 06/23/17 08:15 74 113/72 (86) 06/23/17 07:55 69 06/23/17 07:55 17 06/23/17 07:50 75 06/23/17 07:45 72 06/23/17 07:45 75 111/67 (82) 06/23/17 07:40 75 06/23/17 07:35 68 06/23/17 07:32 17 06/23/17 07:30 70 105/68 (80) 06/23/17 07:30 72 06/23/17 07:25 68 06/23/17 07:20 18 06/23/17 07:20 72 Objective Remarks GENERAL: Well-nourished, well-developed patient in NAD. CARDIOVASCULAR: Regular rate and rhythm without murmur, gallop, or rub. RESPIRATORY: Breath sounds equal bilaterally. No accessory muscle use. No increased WOB. ABDOMEN/GI: Abdomen soft, non-tender. Appropriately distended from . Normal BS. Fundus: Firm, non-tender below umbilicus. GENITOURINARY: Light to moderate bleeding. EXTREMITIES: No cyanosis or edema, non-tender, without signs of DVT. Medications and IVs Current Medications Medications (Trade) Dose Ordered Sig/[place] Route Start Time Stop Time Status Last Admin (Zofran Inj) 4 mg Q6H PRN IV PUSH 06/19/17 11:15 06/22/17 22:14 (Protonix) 20 mg DAILY PO 06/19/17 14:00 06/23/17 08:50 (Calcium Gluconate Inj) 1 gm UNSCH PRN IV PUSH 06/19/17 16:15 (Zoloft) 50 mg DAILY@2000 PO 06/19/17 20:00 06/23/17 19:59 (Tylenol) 650 mg Q6H PRN PO 06/20/17 08:30 06/23/17 16:04 (Mag-Al Plus Susp Liq) 30 ml Q6H PRN PO 06/20/17 23:00 06/20/17 22:40 Lactated Ringer's 1,000 ml @ 75 mls/hr [id number] IV 06/21/17 07:30 06/24/17 00:28 (Ambien) 10 mg HS PRN PO 06/21/17 19:15 06/24/17 00:28 Ampicillin Sodium 2000 mg/Sodium Chloride 100 ml @ 300 mls/hr Q6H IV 06/21/17 20:00 06/24/17 00:28 (Benadryl) 25 mg Q4H PRN PO 06/22/17 08:00 Gentamicin Sulfate/Sodium Chloride 100 ml @ 200 mls/hr Q8H IV 06/23/17 00:00 06/24/17 00:27 (NS Flush) 2 ml BID IV FLUSH 06/23/17 09:00 (NS Flush) 2 ml UNSCH PRN IV FLUSH 06/23/17 08:30 (Motrin) 800 mg Q8H PRN PO 06/23/17 08:30 06/24/17 05:41 (Americaine 20% Top Spr) 1 spray Q4H PRN TOPICAL 06/23/17 08:30 (Tucks Pads) 1 applic QID PRN TOPICAL 06/23/17 08:30 ([place]-Colace) 2 tab Q12H PRN PO 06/23/17 08:30 Assessment/Plan Problem List: (1) 28 weeks gestation of ICD Codes: Z3A.28 - 28 weeks gestation of Status: Acute (2) Vaginal bleeding during , antepartum ICD Codes: O46.90 - Antepartum hemorrhage, unspecified, unspecified trimester Status: Acute (3) Placenta previa ICD Codes: O44.00 - Complete placenta previa NOS or without hemorrhage, unspecified trimester Assessment and Plan 31-year-old delivered at 29/4 weeks via after PPROM with severe vaginal bleeding secondary to posterior marginal placenta previa s/p 2uPRBCs. Pt is PPD#2. AFVSS overnight. Pain is controlled with ibuprofen, decreased lochia. Denies dysuria. No breast tenderness. She is feeding the baby via breast. Appetite good. No nausea or vomiting. + flatus. + bowel movement. Ambulating well. Denies calf pain, shortness of breath, or cough. Otherwise, she is doing well this morning and has no other complaints. -Continue routine care -Motrin PRN for pain -Pericolase PRN for constipation -H/H 9.1/26.1 on 06/22/17 and stable s/p transfusion 2u PRBCs early on 06/22; asymptomatic today -Encouraged OOB. Advised pelvic rest for 6 wks -Will need a follow-up appointment in 6 wks for post- check -Pt plans BTL at 6 weeks -Discontinue Ampicillin and Gentamicin Discussed with Camacho Meza and Pop Martinez MD R1 Jun 24, 2017 07:22
[2017-06-24] MEDS ORDERED: IBUP1TAB7 PO (07:24)
--- NOTE | 2017-06-24 07:25 | HHI.DCPOC ---
Discharge Care Plan Report Symptoms to Your Doctor -Temperature above 100.5 degrees -Redness, of incision or excessive or foul smelling drainage -Unusual pain or calf pain -Increased vaginal bleeding -Painful or difficulty urinating -Feelings of extreme sadness or anxiety after 2 weeks Goals to Promote Your Health * To prevent worsening of your condition and complications, place nothing in the vagina for 6 weeks; take only showers for the next 2-3 weeks; no sexual intercourse for 6 weeks; weight bearing only as tolerated. No heavy lifting. * To maintain your health at the optimal level, please see your MEDICATION ASSISTANT doctor in 6 weeks. Directions to Meet Your Goals Take your medications as prescribed Follow your dietary instruction Follow activity as directed Ensure plenty of rest for recovery Drink fluids for hydration Keep your appointments as scheduled Take your immunizations and boosters as scheduled If your symptoms worsen call your PCP, if no PCP go to Urgent Care Center or Emergency Room Smoking is Dangerous to Your Health. Avoid second hand smoke Call the 24-hour crisis hotline for domestic abuse at Pop Zuleta MD R1 Jun 24, 2017 07:25
[2017-06-24] MEDS: PANTOPRAZOLE SOD 20 MG DELAYED RELEASE TAB PO SCH (08:55)
[2017-06-24 13:40] VITALS: RESP 18; TEMP 98.5
[2017-06-24] MEDS: SODIUM CHLORIDE 0.9% FLUSH 10 ML FLUSH IV FLUSH SCH (19:30)
[2017-06-24 20:05] VITALS: BP 115/62; PULSE 62; RESP 17; TEMP 97.6
[2017-06-24] MEDS: SERTRALINE HCL 50 MG TAB PO SCH (21:29)
[2017-06-25] MEDS: IBUPROFEN 800 MG TAB PO PRN (04:52)
--- NOTE | 2017-06-25 08:25 | HHI.OB ---
Subjective Post Day: 2 Remarks Patient is doing better this morning although she states that she is still having a lot of cramping pain. Lochia is less than a period. She is eating and drinking well with no nausea or vomiting. She denies dysuria but states that she is going to urinate more frequently. She has passed gas and had a bowel movement. She is trying to pump for her baby who is premature in the NICU. She is ambulating without leg pain but does have some edema. She denies shortness of breath or chest pain and states that her mood is good. Objective Vitals/I&O Vital Signs Date Time Temp Pulse Resp B/P (MAP) Pulse Ox O2 Delivery O2 Flow Rate FiO2 06/24/17 20:05 97.6 62 17 115/62 (79) 06/24/17 13:40 98.5 18 Objective Remarks GENERAL: Well-nourished, well-developed patient in NAD. CARDIOVASCULAR: Regular rate and rhythm without murmur, gallop, or rub. RESPIRATORY: Breath sounds equal bilaterally. No accessory muscle use. No increased WOB. ABDOMEN/GI: Abdomen soft, non-tender. Fundus: Firm, non-tender at umbilicus. GENITOURINARY: Light to moderate bleeding. EXTREMITIES: No cyanosis or edema, non-tender, without signs of DVT. Medications and IVs Current Medications Medications (Trade) Dose Ordered Sig/[place] Route Start Time Stop Time Status Last Admin (Zofran Inj) 4 mg Q6H PRN IV PUSH 06/19/17 11:15 06/22/17 22:14 (Protonix) 20 mg DAILY PO 06/19/17 14:00 06/24/17 08:55 (Calcium Gluconate Inj) 1 gm UNSCH PRN IV PUSH 06/19/17 16:15 (Zoloft) 50 mg DAILY@2000 PO 06/19/17 20:00 06/24/17 21:29 (Tylenol) 650 mg Q6H PRN PO 06/20/17 08:30 06/23/17 16:04 (Mag-Al Plus Susp Liq) 30 ml Q6H PRN PO 06/20/17 23:00 06/20/17 22:40 Lactated Ringer's 1,000 ml @ 75 mls/hr [id number] IV 06/21/17 07:30 06/24/17 00:28 (Ambien) 10 mg HS PRN PO 06/21/17 19:15 06/24/17 21:29 (Benadryl) 25 mg Q4H PRN PO 06/22/17 08:00 (NS Flush) 2 ml BID IV FLUSH 06/23/17 09:00 (NS Flush) 2 ml UNSCH PRN IV FLUSH 06/23/17 08:30 (Motrin) 800 mg Q8H PRN PO 06/23/17 08:30 06/25/17 04:52 (Americaine 20% Top Spr) 1 spray Q4H PRN TOPICAL 06/23/17 08:30 (Tucks Pads) 1 applic QID PRN TOPICAL 06/23/17 08:30 ([place]-Colace) 2 tab Q12H PRN PO 06/23/17 08:30 Assessment/Plan Problem List: (1) 28 weeks gestation of ICD Codes: Z3A.28 - 28 weeks gestation of Status: Acute (2) Vaginal bleeding during , antepartum ICD Codes: O46.90 - Antepartum hemorrhage, unspecified, unspecified trimester Status: Acute (3) Placenta previa ICD Codes: O44.00 - Complete placenta previa NOS or without hemorrhage, unspecified trimester Assessment and Plan 31-year-old delivered at 29/4 weeks via after PPROM with severe vaginal bleeding secondary to posterior marginal placenta previa s/p 2uPRBCs. Pt is PPD#2. AFVSS overnight. -Continue routine care -Motrin PRN for pain -Pericolase PRN for constipation -Encouraged OOB. Advised pelvic rest for 6 wks -Will need a follow-up appointment in 6 wks for post- check -Pt plans BTL at [address] Marie Discharge Planning Discharge home today Stacey Frazier MD R2 Jun 25, 2017 08:25
[2017-06-25] MEDS ORDERED: IBUPROFEN 800 MG TAB PO PRN (08:30)
[2017-06-25] MEDS: ACETAMINOPHEN 325 MG TAB PO PRN (13:29)
== END 2017-06-25 14:29 | disposition home or self-care (01) | DRG 774 ==
LOC: HOBED 09:51 → H2EB 10:13 → H2EA 10:57 → H2EB 06-22 22:56 → H1EA 06-23 11:37
PROVIDERS: ADMIT Obstetrics & Gynecology; ATTEND Obstetrics & Gynecology
PROC: 30233N1 Transfusion of Nonautologous Red Blood Cells into Peripheral Vein, Percutaneous Approach (ICD-10-PCS; 2017-06-22)
PROC: 3E0P3VZ Introduction of Hormone into Female Reproductive, Percutaneous Approach (ICD-10-PCS; 2017-06-22)
PROC: 10E0XZZ Delivery of Products of Conception, External Approach (ICD-10-PCS; principal; 2017-06-23)
DX: O44.33 Partial placenta previa with hemorrhage, third trimester (principal); O60.14X0 Preterm labor third trimester with preterm delivery third trimester, not applicable or unspecified; O41.1230 Chorioamnionitis, third trimester, not applicable or unspecified; Z37.0 Single live birth; Z3A.28 28 weeks gestation of pregnancy; E87.6 Hypokalemia; F17.210 Nicotine dependence, cigarettes, uncomplicated; O99.334 Smoking (tobacco) complicating childbirth; F32.9 Major depressive disorder, single episode, unspecified; O99.344 Other mental disorders complicating childbirth; O99.284 Endocrine, nutritional and metabolic diseases complicating childbirth; O42.113 Preterm premature rupture of membranes, onset of labor more than 24 hours following rupture, third trimester
CPT/HCPCS: 36415; 36430; 76815; 76816; 80048; 80074; 80307; 81001; 82805; 83030; 83735; 84112; 84155; 85014; 85018; 85027; 85384; 86592; 86703; 86762; 86850; 86900; 86901; 86920; 87070; 88307; 90715; 96365; 96372; J0290; J0702; J1580; J2210; J2405; J2590; J3010; J3475; J7050; J7120; P9016

== ENCOUNTER 2017-07-08 17:33 | Emergency (ER) | payer MEDICAID ==
[~2017-07-08] VITALS: Ht 149.9 cm; Wt 60.0 kg
[~2017-07-08 17:33] MED LIST changes: +IBUP1TAB7 PO; -MACR100C2 PO; +PREN29TA PO; -PROM25TA10 PO; -REGL10TA5 PO; +ZOLO50TA PO
[2017-07-08 17:37] VITALS: BP 133/88; PULSE 92; RESP 18; TEMP 98.7; O2SAT 97
--- NOTE | 2017-07-08 18:39 | PD ---
HPI Chief Complaint: Skin Problem Time Seen by Provider: 18:20 Travel History International Travel<30 days: No Contact w/Intl Traveler<30days: No Traveled to known affect area: No History of Present Illness HPI Patient comes in complaining of a burning itching rash that began yesterday. Patient denies any airway involvement or sensation of throat closing. Patient states she discharged from the hospital 2 weeks ago after having a blood transfusion given at 28 weeks secondary to hemorrhage. Patient denies any other known new allergen exposures. Patient tried taking Benadryl for symptomatic relief but has not helped. Denies anything making it worse. PFSH Past Medical History Hx Anticoagulant Therapy: No Cardiovascular Problems: Yes (HTN) Diabetes: No Diminished Hearing: No Gastrointestinal Disorders: Yes (GASTROPERISIS) Immunizations Current: Yes Tetanus Vaccination: < 5 Years ?: Not LMP: 11/22/16 : 7 Para: 3 Miscarriage: 1 : 3 Past Surgical History Section: No Tympanostomy Tube: Yes Social History Alcohol Use: No Tobacco Use: Yes Substance Use: Yes (MARIJUANA ) Allergies-Medications (Allergen,Severity, Reaction): Coded Allergies: doxycycline (Unverified Allergy, Severe, Nausea/Vomiting, 07/08/17) loracarbef (Verified Allergy, Severe, SOB, swelling, 07/08/17) latex (Verified Allergy, Mild, redness, irritation, 07/08/17) Reported Meds & Prescriptions Reported Meds & Active Scripts Active Pepcid (Famotidine) 20 Mg Tab 20 Mg PO BID 10 Days Prednisone (21) 10 mg tab Dose Pack (Prednisone) 10 Mg Pack 10 Mg PO DIRECTED Zofran Odt (Ondansetron Odt) 4 Mg Tab 4 Mg SL TID PRN Reported Plus Iron 29-1 mg ( Vit-Iron Carbonyl) 29 Mg Iron-1 Mg Tab 1 Tab PO DAILY Zoloft (Sertraline HCl) 50 Mg Tab 50 Mg PO DAILY Review of Systems General / Constitutional: No: Fever Eyes: No: Visual changes HENT: No: Headaches Cardiovascular: No: Chest Pain or Discomfort Respiratory: No: Shortness of Breath Gastrointestinal: No: Abdominal Pain Genitourinary: No: Dysuria Musculoskeletal: No: Pain Skin: Positive Rash (itching/burning) Neurologic: No: Weakness Psychiatric: No: Depression Endocrine: No: Polydipsia Hematologic/Lymphatic: No: Easy Bruising Physical Exam Narrative GENERAL: Well-developed, well nourished, in no acute distress, and non-ill appearing. SKIN: Urticaria appearing rash to bilateral upper extremities and trunk. It is blanching. There is no crepitus. Rash appears suspicious for PEP. No oral lesions. HEAD: Atraumatic. Normocephalic. EYES: Pupils equal and round. EOMI. No scleral icterus. No injection or drainage. ENT: No nasal bleeding or discharge. Mucous membranes pink and moist. NECK: Trachea midline. Supple. No nuclear rigidity. No stridor. CARDIOVASCULAR: Regular rate and rhythm. No murmur appreciated. RESPIRATORY: No accessory muscle use. No respiratory distress. Clear to auscultation. Breath sounds equal bilaterally. No stridor. MUSCULOSKELETAL: No obvious deformities. No clubbing. No cyanosis. No edema. Full range of motion. NEUROLOGICAL: Awake and alert. No obvious cranial nerve deficits. Motor grossly within normal limits. Normal speech. PSYCHIATRIC: Appropriate mood and affect; insight and judgment normal. Data Data Last Documented VS Vital Signs Date Time Temp Pulse Resp B/P (MAP) Pulse Ox O2 Delivery O2 Flow Rate FiO2 07/08/17 17:37 98.7 92 18 133/88 (103) 97 Orders Orders Methylprednisolone So Succ Inj (Solumedr (07/08/17 18:45) Famotidine (Pepcid) (07/08/17 18:45) Diphenhydramine (Benadryl) (07/08/17 18:45) Ed Discharge Order (07/08/17 19:14) [facility] Medical Decision Making Medical Screen Exam Complete: Yes Emergency Medical Condition: Yes Differential Diagnosis Allergic reaction, cellulitis, dermatitis, PEP, urticaria Narrative Course The patient looks great and was non-ill appearing. There was no evidence to suggest scabies, cellulitis, folliculitis or abscess, Staph. Scalded Skin Syndrome, Toxic Shock, Toxic Epidermal necrolysis, Kawasaki, Measles, Rubella, cutaneous T cell lymphoma, Erythema Multiforme (minor or major). Patient in no obvious distress upon re-evaluation and reports improvement of symptoms. Discussed patient with Dr. Paredes, who saw and evaluated the patient and is in agreement with plan of care and disposition. Any questions/concerns in reference to patient diagnosis/condition discussed and clarified prior to patient's discharge. Reinforced sheer importance of close follow up with patient 's primary physician or primary care clinic. Instructed patient to return to ED immediately, if symptoms return/worsen. Patient showed understanding of above instructions. Further instructions and recommendations were detailed in discharge paperwork. Patient ambulated without difficulty out of ED at discharge. Diagnosis Primary Impression: Polymorphic eruption of Patient Instructions: General Instructions, Pruritic Urticarial Papules and Plaques of (ED) Additional Instructions: Follow-up with your primary care physician next week for reevaluation. Take all medication as prescribed. Use [id number] Claritin or Zyrtec or Benadryl as needed for symptomatic relief. Follow instructions on the package. Inform your collector of port of medications or taking regarding breast-feeding. Return to the emergency department if symptoms get worse. Med/Other Pt SpecificInfo: Prescription(s) given Scripts Famotidine (Pepcid) 20 Mg Tab 20 MG PO BID for 10 Days, #20 TAB 0 Refills Prov: Emani Paredes DO 07/08/17 Prednisone (21) 10 mg tab Dose Pack (Prednisone (21) 10 mg tab Dose Pack) 10 Mg Pack 10 MG PO DIRECTED for Inflammation, #1 DSPK 0 Refills Prov: Emani Paredes DO 07/08/17 Disposition: 01 DISCHARGE HOME Condition: Stable Betito Harrington Jul 08, 2017 18:39
[2017-07-08] MEDS ORDERED: FAMOTIDINE 20 MG TAB PO ONE (18:45)
[2017-07-08] MEDS ORDERED: diphenhydrAMINE HCL 25 MG CAP PO ONE (18:45)
[2017-07-08] MEDS ORDERED: methylPREDNISolone SOD SUCC 125 MG/2 ML VIAL IM ONE (18:45)
[2017-07-08] MEDS ORDERED: PRED10PA PO (19:13)
[2017-07-08] MEDS ORDERED: FAMO1TAB37 PO (19:13)
== END 2017-07-08 19:21 | disposition home or self-care (01) ==
LOC: PHEFT 17:33
DX: O26.86 Pruritic urticarial papules and plaques of pregnancy (PUPPP) (principal); I10 Essential (primary) hypertension
CPT/HCPCS: 96372; 99284; J2930

== ENCOUNTER 2017-12-16 11:10 | Emergency (ER) | payer OTHER ==
[~2017-12-16] VITALS: Ht 149.9 cm; Wt 66.0 kg
[~2017-12-16 11:10] MED LIST changes: +FAMO1TAB37 PO; -IBUP1TAB7 PO; +PRED10PA PO
[2017-12-16 11:20] VITALS: BP 130/65; PULSE 89; RESP 16; TEMP 98.2; O2SAT 98
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
== END 2017-12-16 12:07 | disposition home or self-care (01) ==
LOC: PHEFT 11:10
DX: T14.8XXA Other injury of unspecified body region, initial encounter (principal); V49.50XA Passenger injured in collision with unspecified motor vehicles in traffic accident, initial encounter; M54.2 Cervicalgia; M54.5 Low back pain; I10 Essential (primary) hypertension; F41.9 Anxiety disorder, unspecified; F17.210 Nicotine dependence, cigarettes, uncomplicated; F12.90 Cannabis use, unspecified, uncomplicated
CPT/HCPCS: 99282